=== PATIENT | female | born 1980 | race Caucasian/White ===

== ENCOUNTER 2018-03-10 02:50 | Emergency (ER) | payer MEDICAID ==
[2018-03-10] MEDS ORDERED: ALBUTEROL 2.5 MG/3 ML NEB SOL ONE (02:57)
[2018-03-10] MEDS ORDERED: IPRATROPIUM BROM 0.5MG/2.5ML ONE ×2 (02:57→03:00)
[2018-03-10] MEDS ORDERED: predniSONE 20 MG TAB ONE (03:30)
--- NOTE | 2018-03-10 03:38 | ER ---
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 aa1 Transition of care: patient was not received from another setting of care. Onset of symptoms was March 10, 2018. Care prior to arrival: None. 03:01 Method Of Arrival: Ambulatory aa1 03:01 Acuity: SHILPA 3 aa1 Triage Assessment: 03:10 General: Appears distressed, comfortable. Respiratory: Reports shortness of breath bp Onset: The symptoms/episode began/occurred just prior to arrival, the patient has moderate shortness of breath. 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 - Social history:: The patient lives at home, Smoking status: Patient/guardian denies using tobacco. Screenin:10 Abuse screen: Denies threats or abuse. Denies injuries from another. Nutritional bp screening: No deficits noted. Tuberculosis screening: No symptoms or risk factors identified. Fall Risk None identified. Assessment: 03:10 General: Appears distressed, comfortable, obese, Behavior is cooperative, appropriate bp for age, anxious. Pain: Denies pain. Neuro: Level of Consciousness is awake, alert, obeys commands, Oriented to person, place, time, situation, Appropriate for age. Cardiovascular: Rhythm is sinus rhythm. Respiratory: Airway is patent Respiratory effort is labored, shallow, Breath sounds are diminished bilaterally. GI: No deficits noted. : No deficits noted. EENT: No deficits noted. Derm: No deficits noted. Musculoskeletal: Circulation, motion, and sensation intact. Range of motion: intact in all extremities. 03:44 Reassessment: PT D/C HOME AMBULATORY, DX WITH ASTHMA EXACERBATION. bp Vital Signs: 03:02 BP 133 / 99; Pulse 95; Resp 28; Temp 98.1; Pulse Ox 100% on R/A; Weight 58.97 kg (R); aa1 03:44 BP 94 / 78; Pulse 90; Resp 16; Pulse Ox 100% ; bp ED Course: 02:51 Patient arrived in ED. am2 02:52 Carl Hernandez, JOSE LUIS is Primary Nurse. bp 02:58 Ananth Mcgraw MD is Attending Physician. gs 03:01 Triage completed. aa1 03:02 Arm band placed on right wrist. Patient placed in an exam room, on a stretcher. aa1 03:10 Patient has correct armband on for positive identification. Bed in low position. Call bp light in reach. Side rails up X2. 03:10 No provider procedures requiring assistance completed. Patient did not have IV access bp during this emergency room visit. Administered Medications: 03:03 Drug: Albuterol - atroVENT (3:1) (2.5 mg - 0.5 mg) 3 ml Route: Nebulizer; ak1 03:33 Follow up: Response: No adverse reaction ak1 03:03 Drug: AtroVENT Aerosol 0.5 mg Route: Inhalation; ak1 03:34 Follow up: Response: No adverse reaction ak1 03:32 Drug: predniSONE 40 mg Route: PO; ak1 03:33 Follow up: Response: No adverse reaction ak1 Outcome: 03:10 Discharged to home ambulatory. bp 03:10 Condition: stable 03:10 Discharge instructions given to patient, Instructed on discharge instructions, follow up and referral plans. medication usage, Demonstrated understanding of instructions, follow-up care, medications, Prescriptions given X 3. 03:37 Discharge ordered by . 03:53 Patient left the ED. bp Signatures: Kezia Nova RN RN aa1 Traci Gaspar RN RN ak1 Yarelis Kan am2 Ananth Mcgraw MD MD gs Peltier, Brian RN RN bp
--- NOTE | 2018-03-10 03:38 | EDPHYS ---
Physician Documentation [facility] Name: Najma Wood Age: 37 yrs Sex: Female : 1980 Arrival Date: 03/10/2018 Time: 02:51 Bed 5 Private MD: ED Physician Ananth Mcgraw HPI: 03/10 03:34 This 37 yrs old Female presents to ER via Ambulatory with complaints of gs Shortness Of Breath. 03:34 The patient has shortness of breath at rest. Onset: The symptoms/episode began/occurred gs acutely, yesterday. Duration: The symptoms are continuous, and are steadily getting worse. The patient's shortness of breath has no apparent modifying factors. Associated signs and symptoms: Pertinent positives: non-productive cough, Pertinent negatives: chest pain. Severity of symptoms: At their worst the symptoms were severe in the emergency department the symptoms are unchanged. The patient has experienced similar episodes in the past, multiple times. RAN OUT OF INHALERS. 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 - Social history:: The patient lives at home, Smoking status: Patient/guardian denies using tobacco. ROS: 03:34 All other systems are negative. gs Exam: 03:34 Head/Face: Normocephalic, atraumatic. Eyes: Pupils equal round and reactive to light, gs extra-ocular motions intact. Lids and lashes normal. Conjunctiva and sclera are non-icteric and not injected. Cornea within normal limits. Periorbital areas with no swelling, redness, or edema. ENT: Nares patent. No nasal discharge, no septal abnormalities noted. Tympanic membranes are normal and external auditory canals are clear. Oropharynx with no redness, swelling, or masses, exudates, or evidence of obstruction, uvula midline. Mucous membranes moist. Neck: Trachea midline, no thyromegaly or masses palpated, and no cervical lymphadenopathy. Supple, full range of motion without nuchal rigidity, or vertebral point tenderness. No Meningismus. Chest/axilla: Normal chest wall appearance and motion. Nontender with no deformity. No lesions are appreciated. 03:34 Abdomen/GI: Soft, non-tender, with normal bowel sounds. No distension or tympany. No guarding or rebound. No evidence of tenderness throughout. Back: No spinal tenderness. No costovertebral tenderness. Full range of motion. Skin: Warm, dry with normal turgor. Normal color with no rashes, no lesions, and no evidence of cellulitis. MS/ Extremity: Pulses equal, no cyanosis. Neurovascular intact. Full, normal range of motion. Neuro: Awake and alert, GCS 15, oriented to person, place, time, and situation. Cranial nerves II-XII grossly intact. Motor strength 5/5 in all extremities. Sensory grossly intact. Cerebellar exam normal. Normal gait. 03:34 Constitutional: The patient appears alert, awake. 03:34 Cardiovascular: Rate: tachycardic, Rhythm: regular, Pulses: no pulse deficits are appreciated, Heart sounds: normal. 03:34 Respiratory: mild respiratory distress is noted, Respirations: tachypnea, that is mild, Breath sounds: decreased breath sounds, that are moderate, are located in both bases, wheezing: expiratory is scattered. Vital Signs: 03:02 BP 133 / 99; Pulse 95; Resp 28; Temp 98.1; Pulse Ox 100% on R/A; Weight 58.97 kg (R); aa1 03:44 BP 94 / 78; Pulse 90; Resp 16; Pulse Ox 100% ; bp MDM: 03:02 Patient medically screened. 03:34 Differential diagnosis: asthma, Chronic Obstructive Pulmonary Disease. Data reviewed: vital signs, nurses notes. Medication response: albuterol nebulizer treatment(s) relieved the patient's symptoms. The patient is no longer wheezing. Response to treatment: the patient's symptoms have markedly improved after treatment, and as a result, I will discharge patient. Administered Medications: 03:03 Drug: Albuterol - atroVENT (3:1) (2.5 mg - 0.5 mg) 3 ml Route: Nebulizer; ak1 03:33 Follow up: Response: No adverse reaction ak1 03:03 Drug: AtroVENT Aerosol 0.5 mg Route: Inhalation; ak1 03:34 Follow up: Response: No adverse reaction ak1 03:32 Drug: predniSONE 40 mg Route: PO; ak1 03:33 Follow up: Response: No adverse reaction ak1 Disposition: 03/10/18 03:37 Discharged to Home. Impression: Mild persistent asthma with (acute) exacerbation. - Condition is Stable. - Discharge Instructions: Asthma, Adult. - Prescriptions for Albuterol Sulfate 2.5 mg /3 mL (0.083 %) Inhalation Solution for Nebulization - inhale 1 unit by NEBULIZATION route every 8 hours As needed; 1 box. Prednisone 20 mg Oral Tablet - take 2 tablet by ORAL route once daily for 5 days; 10 tablet. Albuterol Sulfate 90 mcg/actuation Inhalation - inhale 1-2 puff by INHALATION route every 4-6 hours; 2 Inhaler. - Medication Reconciliation Form, Thank You Letter, Antibiotic Education, Prescription Opioid Use form. - Follow up: Private Physician; When: 1 - 2 days; Reason: Re-evaluation by your physician. Signatures: Kezia Nova RN RN aa1 Traci Gaspar RN RN ak1 Ananth Mcgraw MD MD Carl Hernandez RN RN bp
== END 2018-03-10 03:53 | disposition home or self-care (01) ==
LOC: ER 02:50
DX: J45.21 Mild intermittent asthma with (acute) exacerbation (principal)
CPT/HCPCS: 94640; 99284; J7512

== ENCOUNTER 2018-05-16 06:10 | Emergency (ER) | payer MEDICAID ==
[2018-05-16] MEDS ORDERED: IPRATROPIUM BROM 0.5MG/2.5ML ONE ×2 (06:17→07:33)
[2018-05-16] MEDS ORDERED: ALBUTEROL 2.5 MG/3 ML NEB SOL ONE ×2 (06:17→07:33)
[2018-05-16] MEDS ORDERED: METHYLPREDNISOLONE 125 MG INJ ONE (06:31)
[2018-05-16] MEDS ORDERED: Magnesium Sulfate 2gm IVPB 2 G/50 ML BAG IV ONE (06:38)
--- NOTE | 2018-05-16 08:15 | EDPHYS ---
Physician Documentation [facility] Name: Najma Wood Age: 37 yrs Sex: Female : 1980 Arrival Date: 05/16/2018 Time: 06:11 Bed 13 Private MD: ED Physician Ananth Mcgraw HPI: 05/16 06:51 This 37 yrs old Female presents to ER via Ambulatory with complaints of jmm Asthma Exacerbation. 06:51 The patient presents to the emergency department with wheezing, that began without any jmm particular precipitating event. Onset: The symptoms/episode began/occurred gradually, 1 day(s) ago. Modifying factors: The symptoms are alleviated by nothing, the symptoms are aggravated by nothing. Associated signs and symptoms: Pertinent negatives: fever. This is a 37 year old female with a history of asthma that presents to the ED with wheezing. Patient is unsure of previous intubation. Patient states she was last admitted for asthma exacerbation in 2017. . 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 - Social history:: Smoking status: unknown. - Ebola Screening: : No symptoms or risks identified at this time. ROS: 06:51 Constitutional: Negative for fever, chills, and weight loss, Cardiovascular: Negative jmm for chest pain, palpitations, and edema. 06:51 Abdomen/GI: Negative for abdominal pain, nausea, vomiting, diarrhea, and constipation, Back: Negative for injury and pain, Skin: Negative for injury, rash, and discoloration, Neuro: Negative for headache, weakness, numbness, tingling, and seizure. 06:51 Respiratory: Positive for cough, shortness of breath. 06:51 All other systems are negative. Exam: 06:51 Head/Face: atraumatic. Chest/axilla: Normal chest wall appearance and motion. jmm Nontender with no deformity. No lesions are appreciated. Cardiovascular: Regular rate and rhythm. No gallops, murmurs, or rubs. Full/Equal distal pulses. 06:51 Constitutional: The patient appears in no acute distress, alert, awake. 06:51 Respiratory: mild respiratory distress is noted, Respirations: normal, Breath sounds: wheezing: that is moderate, is heard diffusely. 06:51 Back: ROM is normal. 06:51 Musculoskeletal/extremity: ROM: intact in all extremities. 06:51 Skin: Appearance: Color: normal in color. 06:51 Neuro: Orientation: is normal, Mentation: is normal, Memory: is normal, Gait: is steady. 06:51 Psych: Behavior/mood is pleasant, cooperative. Vital Signs: 06:24 BP 128 / 113; Pulse 74; Resp 20 S; Temp 98.0(O); Pulse Ox 100% on R/A; Weight 68.04 kg bb (R); Height 4 ft. 9 in. (144.78 cm) (R); 07:14 BP 109 / 65; Pulse 85; Resp 16; Pulse Ox 98% on R/A; Pain 0/10; em 08:22 BP 104 / 67; Pulse 94; Resp 18; Pulse Ox 100% on Nebulizer Mask; Pain 0/10; em 06:24 Body Mass Index 32.46 (68.04 kg, 144.78 cm) bb MDM: 06:34 Patient medically screened. [facility] 07:18 Data reviewed: vital signs, nurses notes. [facility] 08:14 Counseling: I had a detailed discussion with the patient and/or guardian regarding: the [facility] historical points, exam findings, and any diagnostic results supporting the discharge/admit diagnosis, the need for outpatient follow up, to return to the emergency department if symptoms worsen or persist or if there are any questions or concerns that arise at home. Response to treatment: the patient's symptoms have resolved after treatment. Administered Medications: 06:21 Drug: Albuterol - atroVENT (3:1) (2.5 mg - 0.5 mg) 3 ml Route: Nebulizer; bb 07:29 Follow up: Response: No adverse reaction em 06:34 Drug: SOLU-Medrol 125 mg Route: IVP; Site: left forearm; rv 07:29 Follow up: Response: No adverse reaction em 06:47 Drug: Magnesium Sulfate 2 grams Route: IVPB; Infused Over: 2 hrs; Site: left femoral; rv 07:29 Follow up: Response: No adverse reaction; IV Status: Completed infusion; IV Intake: em 100ml 07:35 Drug: DuoNeb (3:1) (2.5 mg - 0.5 mg) 3 ml Route: Nebulizer; em 08:38 Follow up: Response: No adverse reaction; Wheezing diminished em Disposition: 19:07 Co-signature as Attending Physician, Ananth Mcgraw MD. Disposition: 05/16/18 08:15 Discharged to Home. Impression: Asthma. - Condition is Stable. - Discharge Instructions: Asthma, Adult, Asthma Attack Prevention. - Prescriptions for Prednisone 20 mg Oral Tablet - take 3 tablet by ORAL route once daily for 5 days; 15 tablet. Albuterol Sulfate 90 mcg/actuation Inhalation - inhale 1-2 puff by INHALATION route every 4-6 hours; 2 Inhaler. Albuterol Sulfate 2.5 mg /3 mL (0.083 %) Inhalation Solution for Nebulization - inhale 1 unit by NEBULIZATION route every 8 hours As needed; 2 box. - Medication Reconciliation Form, Thank You Letter, Antibiotic Education, Prescription Opioid Use form. - Follow up: Private Physician; When: 2 - 3 days; Reason: Continuance of care. Signatures: Abhilash Chang PA PA [facility] Lane Torrez, SHAKE SPLITTER SHAKE SPLITTER Kia Perry RN RN bb Ananth Mcgraw MD MD Julio Sorensen, RN RN rv Corrections: (The following items were deleted from the chart) 08:38 08:15 05/16/2018 08:15 Discharged to Home. Impression: Asthma. Condition is Stable. em Forms are Medication Reconciliation Form, Thank You Letter, Antibiotic Education, Prescription Opioid Use. Follow up: Private Physician; When: 2 - 3 days; Reason: Continuance of care. fredrick
--- NOTE | 2018-05-16 08:15 | ER ---
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 Transition of care: patient was not received from another setting of care. Onset of symptoms was May 16, 2018 at 04:00. Risk Assessment: Do you want to hurt yourself or someone else? Patient reports no desire to harm self or others. Initial Sepsis Screen: Does the patient meet any 2 criteria? No. Patient's initial sepsis screen is negative. Does the patient have a suspected source of infection? No. Patient's initial sepsis screen is negative. Care prior to arrival: None. 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 - Social history:: Smoking status: unknown. - Ebola Screening: : No symptoms or risks identified at this time. Screenin:50 Abuse screen: Denies threats or abuse. Denies injuries from another. Nutritional rv screening: No deficits noted. Tuberculosis screening: No symptoms or risk factors identified. Fall Risk None identified. Assessment: 06:48 General: Appears distressed, uncomfortable, Behavior is cooperative. Pain: Denies pain. rv Neuro: Level of Consciousness is awake, alert, Oriented to person, place, time, situation. Cardiovascular: Capillary refill < 3 seconds. GI: No signs and/or symptoms were reported involving the gastrointestinal system. : No signs and/or symptoms were reported regarding the genitourinary system. EENT: No signs and/or symptoms were reported regarding the EENT system. Derm: Skin is intact. Musculoskeletal: No deficits noted. 06:50 Respiratory: Breath sounds with wheezes bilaterally. rv 07:03 Reassessment: ongoing inhalation treatment. ongoing magnesium sulfate on left hand. rv report given to Lane. 07:20 General: Appears in no apparent distress. comfortable, Behavior is calm, cooperative. em Pain: Denies pain. Neuro: Level of Consciousness is awake, alert, obeys commands, Oriented to person, place, time, situation. Cardiovascular: Capillary refill < 3 seconds Patient's skin is warm and dry. Respiratory: Airway is patent Respiratory effort is even, unlabored, Respiratory pattern is regular, symmetrical, Breath sounds with wheezes in right posterior middle lobe and right posterior lower lobe. GI: Abdomen is flat. : No signs and/or symptoms were reported regarding the genitourinary system. EENT: No signs and/or symptoms were reported regarding the EENT system. Derm: Skin is intact. Musculoskeletal: Range of motion: intact in all extremities. 08:21 Reassessment: Patient appears in no apparent distress at this time. Patient and/or em family updated on plan of care and expected duration. Pain level reassessed. Patient is alert, oriented x 3, equal unlabored respirations, skin warm/dry/pink. Patient states feeling better. Patient states symptoms have improved. Vital Signs: 06:24 BP 128 / 113; Pulse 74; Resp 20 S; Temp 98.0(O); Pulse Ox 100% on R/A; Weight 68.04 kg bb (R); Height 4 ft. 9 in. (144.78 cm) (R); 07:14 BP 109 / 65; Pulse 85; Resp 16; Pulse Ox 98% on R/A; Pain 0/10; em 08:22 BP 104 / 67; Pulse 94; Resp 18; Pulse Ox 100% on Nebulizer Mask; Pain 0/10; em 06:24 Body Mass Index 32.46 (68.04 kg, 144.78 cm) bb ED Course: 06:11 Patient arrived in ED. es 06:14 Carl Hernandez, JOSE LUIS is Primary Nurse. bp 06:18 Abhilash Chang PA is PHCP. jmm 06:18 Ananth Mcgraw MD is Attending Physician. jmm 06:23 Triage completed. bb 06:24 Arm band placed on Patient placed in an exam room, on a stretcher, on pulse oximetry. bb 06:34 Inserted saline lock: 20 gauge in left forearm, using aseptic technique. rv 06:51 Patient has correct armband on for positive identification. Bed in low position. Call rv light in reach. Side rails up X 1. Pulse ox on. NIBP on. 08:21 No provider procedures requiring assistance completed. IV discontinued, intact, em bleeding controlled, No redness/swelling at site. Pressure dressing applied. Administered Medications: 06:21 Drug: Albuterol - atroVENT (3:1) (2.5 mg - 0.5 mg) 3 ml Route: Nebulizer; bb 07:29 Follow up: Response: No adverse reaction em 06:34 Drug: SOLU-Medrol 125 mg Route: IVP; Site: left forearm; rv 07:29 Follow up: Response: No adverse reaction em 06:47 Drug: Magnesium Sulfate 2 grams Route: IVPB; Infused Over: 2 hrs; Site: left femoral; rv 07:29 Follow up: Response: No adverse reaction; IV Status: Completed infusion; IV Intake: em 100ml 07:35 Drug: DuoNeb (3:1) (2.5 mg - 0.5 mg) 3 ml Route: Nebulizer; em 08:38 Follow up: Response: No adverse reaction; Wheezing diminished em Intake: 07:29 IV: 100ml; Total: 100ml. em Outcome: 08:15 Discharge ordered by . georges 08:37 Discharged to home ambulatory. em 08:37 Condition: good 08:37 Discharge instructions given to patient, Instructed on discharge instructions, follow up and referral plans. medication usage, Demonstrated understanding of instructions, follow-up care, medications, Prescriptions given X 3. 08:38 Patient left the ED. em Signatures: Abhilash Chang PA PA Cher Modi Edgar, CROZE CUTTER HELPER CROZE CUTTER HELPER em Kia Perry, RN RN bb Carl Hernandez, RN RN Julio Prater, JOSE LUIS RN rv Corrections: (The following items were deleted from the chart) 07:04 07:01 Reassessment: patient lab results are normal. vitals signs stable. report given rv to next shift. rv
== END 2018-05-16 08:38 | disposition home or self-care (01) ==
LOC: ER 06:10
DX: J45.909 Unspecified asthma, uncomplicated (principal)
CPT/HCPCS: 94640; 96365; 96375; 99284; J2930; J3475

== ENCOUNTER 2018-07-15 05:23 | Emergency (ER) | payer MEDICAID ==
[2018-07-15] MEDS ORDERED: IPRATROPIUM BROM 0.5MG/2.5ML ONE (05:34)
[2018-07-15] MEDS ORDERED: ALBUTEROL 2.5 MG/3 ML NEB SOL ONE (05:34)
[2018-07-15] MEDS ORDERED: METHYLPREDNISOLONE 125 MG INJ ONE (05:51)
--- NOTE | 2018-07-15 06:24 | EDPHYS ---
Physician Documentation [facility] Name: Najma Wood Age: 38 yrs Sex: Female : 1980 Arrival Date: 07/15/2018 Time: 05:26 Bed 17 Private MD: ED Physician Rodger Kim HPI: 07/15 06:18 This 38 yrs old Female presents to ER via Ambulatory with complaints of tw4 Asthma Exacerbation. 06:18 The patient presents to the emergency department with wheezing, Current therapy: tw4 albuterol inhaler, oral steroids. Onset: The symptoms/episode began/occurred last night. Modifying factors: The symptoms are alleviated by nothing, the symptoms are aggravated by nothing. Associated signs and symptoms: The patient has no apparent associated signs or symptoms. Severity of symptoms: At their worst the symptoms were moderate in the emergency department the symptoms are unchanged. The patient has not experienced similar symptoms in the past. 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 - Social history:: Smoking status: Patient/guardian denies using tobacco. - Ebola Screening: : No symptoms or risks identified at this time. ROS: 06:18 Constitutional: Negative for fever, chills, and weight loss, Eyes: Negative for injury, tw4 pain, redness, and discharge, Cardiovascular: Negative for chest pain, palpitations, and edema, Abdomen/GI: Negative for abdominal pain, nausea, vomiting, diarrhea, and constipation, Back: Negative for injury and pain, MS/Extremity: Negative for injury and deformity, Skin: Negative for injury, rash, and discoloration, Neuro: Negative for headache, weakness, numbness, tingling, and seizure. 06:18 Respiratory: Positive for wheezing, Negative for cough, dyspnea on exertion, hemoptysis, orthopnea. Exam: 06:18 Constitutional: This is a well developed, well nourished patient who is awake, alert, tw4 and in no acute distress. Head/Face: Normocephalic, atraumatic. Chest/axilla: Normal chest wall appearance and motion. Nontender with no deformity. No lesions are appreciated. Cardiovascular: Regular rate and rhythm with a normal S1 and S2. No gallops, murmurs, or rubs. Normal PMI, no JVD. No pulse deficits. 06:18 Respiratory: moderate respiratory distress is noted, Respirations: normal, Breath sounds: wheezing: expiratory Vital Signs: 05:39 BP 200 / 115; Pulse 111; Resp 24; Temp 97.5; Pulse Ox 93% on R/A; Weight 65.77 kg (R); ak1 Height 5 ft. 4 in. (162.56 cm) (R); Pain 2/10; 05:45 BP 134 / 113; Pulse 93; Resp 20; Pulse Ox 99% on 100% Nebulizer Mask; ak1 06:03 BP 112 / 88; Pulse 93; Resp 18; Pulse Ox 99% on R/A; ak1 06:17 Pulse 89; Resp 18; Pulse Ox 97% on R/A; ak1 05:39 Body Mass Index 24.89 (65.77 kg, 162.56 cm) ak1 06:03 pt expressed improvement with a thumbs up. ak1 MDM: 05:30 Patient medically screened. tw4 06:18 Differential diagnosis: acute asthma. Data reviewed: vital signs, nurses notes. tw4 Counseling: I had a detailed discussion with the patient and/or guardian regarding: the historical points, exam findings, and any diagnostic results supporting the discharge/admit diagnosis. Medication response: albuterol nebulizer treatment(s) markedly relieved the patient's wheezing. Medication response: Solumedrol. Response to treatment: the patient's symptoms have markedly improved after treatment, and as a result, I will discharge patient. Special discussion: I discussed with the patient/guardian in detail that at this point there is no indication for admission to the hospital. It is understood, however, that if the symptoms persist or worsen the patient needs to return immediately for re-evaluation. 07/15 05:38 Order name: XRAY CXR (1 view) 07/15 05:38 Order name: IV Saline Lock; Complete Time: 05:46 4 07/15 05:38 Order name: O2 Per Protocol; Complete Time: 05:39 07/15 05:38 Order name: O2 Sat Monitoring; Complete Time: 05:39 tw4 Administered Medications: 05:33 Drug: Albuterol - atroVENT (3:1) (2.5 mg - 0.5 mg) 3 ml Route: Nebulizer; aa1 05:47 Follow up: Response: No adverse reaction ak1 05:49 Drug: SOLU-Medrol 125 mg Route: IVP; Site: right antecubital; ak1 06:30 Follow up: Response: No adverse reaction ak1 Disposition: 07/15/18 06:23 Discharged to Home. Impression: Asthma. - Condition is Stable. - Discharge Instructions: Asthma, Adult, Form - Asthma Action Plan, Adult. - Prescriptions for Albuterol Sulfate 2.5 mg /3 mL (0.083 %) Inhalation Solution for Nebulization - inhale 1 unit by NEBULIZATION route every 8 hours As needed; 1 box. Medrol (Steve) 4 mg Oral Tablets, Dose Pack - take 1 tablet by ORAL route as directed - follow package instructions; 1 packet. Albuterol Sulfate 90 mcg/actuation - inhale 1-2 puff by INHALATION route every 4-6 hours; 1 Inhaler. - Medication Reconciliation Form, Thank You Letter, Antibiotic Education, Prescription Opioid Use form. - Follow up: Private Physician; When: Upon discharge from the Emergency Department; Reason: Further diagnostic work-up, Recheck today's complaints, Re-evaluation by your physician. - Problem is new. - Symptoms have improved. Signatures: Dispatcher [employer] EDMS Kezia Nova RN RN aa1 Traci Gaspar RN RN ak1 Rodger Kim MD MD tw4 Corrections: (The following items were deleted from the chart) 06:40 06:23 07/15/2018 06:23 Discharged to Home. Impression: Asthma. Condition is Stable. ak1 Forms are Medication Reconciliation Form, Thank You Letter, Antibiotic Education, Prescription Opioid Use. Follow up: Private Physician; When: Upon discharge from the Emergency Department; Reason: Further diagnostic work-up, Recheck today's complaints, Re-evaluation by your physician. Problem is new. Symptoms have improved. tw4
--- NOTE | 2018-07-15 06:24 | ER ---
Nurse's Notes [facility] Name: Najma Wood Age: 38 yrs Sex: Female : 1980 Arrival Date: 07/15/2018 Time: 05:26 Bed 17 Private MD: Diagnosis: Asthma Presentation: 07/15 05:39 Presenting complaint: Patient states: asthma attack started at 2200 last and worsened ak1 this morning. pt stated she does not have a PCP and needs a refill on her inhaler. Transition of care: patient was not received from another setting of care. Onset of symptoms was July 14, 2018. Risk Assessment: Do you want to hurt yourself or someone else? Patient reports no desire to harm self or others. Initial Sepsis Screen: Does the patient meet any 2 criteria? No. Patient's initial sepsis screen is negative. Does the patient have a suspected source of infection? No. Patient's initial sepsis screen is negative. Care prior to arrival: None. 05:39 Method Of Arrival: Ambulatory ak1 05:39 Acuity: SHILPA 3 ak1 Triage Assessment: 05:39 General: Appears uncomfortable, Behavior is calm, cooperative. Pain: Denies pain. EENT: ak1 No signs and/or symptoms were reported regarding the EENT system. Neuro: No deficits noted. Cardiovascular: No deficits noted. Respiratory: Reports shortness of breath air hunger Airway is patent Respiratory effort is labored, with retractions, Breath sounds with wheezes the patient has moderate shortness of breath. GI: No signs and/or symptoms were reported involving the gastrointestinal system. : No signs and/or symptoms were reported regarding the genitourinary system. Derm: No signs and/or symptoms reported regarding the dermatologic system. Musculoskeletal: No signs and/or symptoms reported regarding the musculoskeletal system. 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 - Social history:: Smoking status: Patient/guardian denies using tobacco. - Ebola Screening: : No symptoms or risks identified at this time. Screenin:43 Abuse screen: Denies threats or abuse. Denies injuries from another. Nutritional ak1 screening: No deficits noted. Tuberculosis screening: No symptoms or risk factors identified. Fall Risk None identified. Assessment: 05:44 Reassessment: see triage assessment. ak1 Vital Signs: 05:39 BP 200 / 115; Pulse 111; Resp 24; Temp 97.5; Pulse Ox 93% on R/A; Weight 65.77 kg (R); ak1 Height 5 ft. 4 in. (162.56 cm) (R); Pain 2/10; 05:45 BP 134 / 113; Pulse 93; Resp 20; Pulse Ox 99% on 100% Nebulizer Mask; ak1 06:03 BP 112 / 88; Pulse 93; Resp 18; Pulse Ox 99% on R/A; ak1 06:17 Pulse 89; Resp 18; Pulse Ox 97% on R/A; ak1 05:39 Body Mass Index 24.89 (65.77 kg, 162.56 cm) ak1 06:03 pt expressed improvement with a thumbs up. ak1 ED Course: 05:26 Patient arrived in ED. es 05:28 Traci Gaspar, RN is Primary Nurse. ak1 05:30 Rodger Kim MD is Attending Physician. tw4 05:39 Arm band placed on Patient placed in an exam room, on a stretcher, on oxygen, on pulse ak1 oximetry. 05:41 Triage completed. ak1 05:43 Patient has correct armband on for positive identification. Bed in low position. Call ak1 light in reach. Side rails up X 1. Pulse ox on. NIBP on. 05:45 Inserted saline lock: 20 gauge in right antecubital area, using aseptic technique. mw2 Blood collected. 05:57 X-ray completed. Portable x-ray completed in exam room. Patient tolerated procedure kw well. 05:59 XRAY CXR (1 view) In Process Unspecified. EDMS 06:04 No provider procedures requiring assistance completed. ak1 06:31 IV discontinued, intact, bleeding controlled, No redness/swelling at site. Pressure ak1 dressing applied. Administered Medications: 05:33 Drug: Albuterol - atroVENT (3:1) (2.5 mg - 0.5 mg) 3 ml Route: Nebulizer; aa1 05:47 Follow up: Response: No adverse reaction ak1 05:49 Drug: SOLU-Medrol 125 mg Route: IVP; Site: right antecubital; ak1 06:30 Follow up: Response: No adverse reaction ak1 Outcome: 06:23 Discharge ordered by . tw4 06:30 Discharged to home ambulatory. ak1 06:30 Condition: improved 06:30 Discharge instructions given to patient, Instructed on discharge instructions, follow up and referral plans. medication usage, Demonstrated understanding of instructions, follow-up care, medications, Prescriptions given X 3. 06:40 Patient left the ED. ak1 Signatures: Dispatcher [employer] Kezia Amado RN RN aa1 Cher Holley Kimberlee kw Krenek, Amber, RN RN ak1 Rodger Kim MD MD tw4 Dylan Santacruz mw2
--- NOTE | 2018-07-15 08:37 | RAD REPORT ---
EXAM DESCRIPTION: RAD - Chest Single View - 07/15/2018 5:59 am CLINICAL HISTORY: DYSPNEA Chest pain. COMPARISON: Chest Single View dated 12/22/2017; Chest Single View dated 05/20/2017; Chest Single View dated 01/12/2017; Chest Single View dated 09/05/2016 FINDINGS: Portable technique limits examination quality. The lungs are grossly clear. The heart is normal in size. No displaced fractures. IMPRESSION: No acute intrathoracic process suspected.
== END 2018-07-15 06:40 | disposition home or self-care (01) ==
LOC: ER 05:23
DX: J45.909 Unspecified asthma, uncomplicated (principal)
CPT/HCPCS: 71045; 94640; 96374; 99285; J2930

== ENCOUNTER 2018-09-13 05:02 | Emergency (ER) | payer MEDICAID ==
[2018-09-13] MEDS ORDERED: ALBUTEROL 2.5 MG/3 ML NEB SOL ONE (05:39)
[2018-09-13] MEDS ORDERED: METHYLPREDNISOLONE 125 MG INJ ONE (05:39)
[2018-09-13] MEDS ORDERED: NA CHLORIDE 0.9% 1,000 ML ONE (05:40)
[2018-09-13] MEDS ORDERED: predniSONE 20 MG TAB ONE (05:40)
--- NOTE | 2018-09-13 05:56 | ER ---
Nurse's Notes [facility] Name: Najma Wood Age: 38 yrs Sex: Female : 1980 Arrival Date: 09/13/2018 Time: 05:04 Bed 7 Private MD: Diagnosis: Asthma;Acute upper respiratory infection, unspecified Presentation: 09/13 05:05 Presenting complaint: EMS states: pt alerted officers at 0430 of asthma attack. pt ao received A\T\A neb tx in route to ER. officer at bedside with pt. Transition of care: patient was not received from another setting of care. Onset of symptoms was September 13, 2018. Risk Assessment: Do you want to hurt yourself or someone else? Patient reports no desire to harm self or others. Initial Sepsis Screen: Does the patient meet any 2 criteria? No. Patient's initial sepsis screen is negative. Does the patient have a suspected source of infection? No. Patient's initial sepsis screen is negative. Care prior to arrival: None. 05:05 Method Of Arrival: EMS: [facility] ao 05:05 Acuity: SHILPA 4 ao Triage Assessment: 05:09 General: Appears in no apparent distress. Behavior is calm, cooperative. Pain: Denies ao pain. EENT: No signs and/or symptoms were reported regarding the EENT system. Neuro: No deficits noted. Cardiovascular: No deficits noted. Respiratory: Reports shortness of breath cough that is. GI: No signs and/or symptoms were reported involving the gastrointestinal system. : No signs and/or symptoms were reported regarding the genitourinary system. Derm: No signs and/or symptoms reported regarding the dermatologic system. Musculoskeletal: No signs and/or symptoms reported regarding the musculoskeletal system. 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 - Social history:: Smoking status: unknown. - Ebola Screening: : No symptoms or risks identified at this time. - Family history:: not pertinent. Screenin:10 Abuse screen: Denies threats or abuse. Denies injuries from another. Nutritional ao screening: No deficits noted. Tuberculosis screening: No symptoms or risk factors identified. Fall Risk None identified. Assessment: 05:11 Reassessment: Patient appears in no apparent distress at this time. No changes from ak1 previously documented assessment. see triage assessment. Vital Signs: 05:05 BP 145 / 96; Pulse 74; Resp 22; Temp 98; Pulse Ox 100% on Nebulizer Mask; Weight 79.38 ao kg (R); Height 5 ft. 0 in. (152.40 cm) (R); Pain 0/10; 06:23 BP 114 / 74; Pulse 88; Resp 20; Temp 98; Pulse Ox 96% on R/A; Pain 0/10; ak1 05:05 Body Mass Index 34.18 (79.38 kg, 152.40 cm) ao ED Course: 05:04 Patient arrived in ED. ao 05:05 Arm band placed on Patient placed in an exam room, on a stretcher, on oxygen, on pulse ao oximetry, Patient notified of wait time Patient officer at bedside with pt. 05:06 Ray Marquez MD is Attending Physician. yanet 05:08 Triage completed. ao 05:10 Patient has correct armband on for positive identification. Bed in low position. Call ao light in reach. Side rails up X2. Pulse ox on. NIBP on. 05:11 Traci Gaspar, JOSE LUIS is Primary Nurse. ak1 05:37 X-ray completed. Portable x-ray completed in exam room. Patient tolerated procedure ls3 well. 05:38 Chest Single View XRAY In Process Unspecified. EDMS 05:55 Jaylon Virgen MD is Referral Physician. yanet 06:24 No provider procedures requiring assistance completed. Inserted saline lock: 20 gauge ak1 in right antecubital area, using aseptic technique. ,using aseptic technique. placed by Brad Blood collected. 06:42 IV discontinued, intact, bleeding controlled, No redness/swelling at site. Pressure ak1 dressing applied. Administered Medications: 05:38 Drug: Albuterol 5 mg Route: Inhalation; ak1 05:38 Drug: predniSONE 40 mg Route: PO; ak1 06:23 Follow up: Response: No adverse reaction ak1 05:54 Drug: NS 0.9% 1000 ml Route: IV; Rate: 1 bolus; Site: right antecubital; ak1 06:41 Follow up: IV Status: Completed infusion ak1 05:54 Drug: SOLU-Medrol 125 mg Route: IVP; Site: right antecubital; ak1 06:23 Follow up: Response: No adverse reaction ak1 06:40 Drug: Potassium Chloride 40 mEq Route: PO; ak1 06:41 Follow up: Response: No adverse reaction ak1 Outcome: 05:56 Discharge ordered by MD. holt 06:41 Discharged to Law Enforcement ak1 06:41 Condition: good 06:41 Discharge instructions given to police, Instructed on discharge instructions, follow up and referral plans. medication usage, Demonstrated understanding of instructions, follow-up care, medications, Prescriptions given X 4. 06:42 Patient left the ED. ak1 Signatures: Dispatcher [employer] EDMS Ray Marquez MD MD cha Krenek, Amber RN RN ak1 Kb Alvarado RN RN ao Siler, Lynzie 3
--- NOTE | 2018-09-13 05:57 | EDPHYS ---
Physician Documentation [facility] Name: Najma Wood Age: 38 yrs Sex: Female : 1980 Arrival Date: 09/13/2018 Time: 05:04 Bed 7 Private MD: ED Physician Ray Marquez HPI: 09/13 05:15 This 38 yrs old Female presents to ER via EMS with complaints of Asthma yanet Exacerbation. 05:15 The patient presents to the emergency department with wheezing, Current therapy: yanet albuterol inhaler. Onset: The symptoms/episode began/occurred 1 day(s) ago. Modifying factors: The symptoms are alleviated by nothing, the symptoms are aggravated by nothing. Associated signs and symptoms: The patient has no apparent associated signs or symptoms. Severity of symptoms: At their worst the symptoms were. The patient has not experienced similar symptoms in the past. 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 - Social history:: Smoking status: unknown. - Ebola Screening: : No symptoms or risks identified at this time. - Family history:: not pertinent. ROS: 05:15 Constitutional: Negative for fever, chills, and weight loss, Eyes: Negative for injury, yanet pain, redness, and discharge, ENT: Negative for injury, pain, and discharge, Neck: Negative for injury, pain, and swelling, Cardiovascular: Negative for chest pain, palpitations, and edema, Abdomen/GI: Negative for abdominal pain, nausea, vomiting, diarrhea, and constipation, Back: Negative for injury and pain, : Negative for injury, bleeding, discharge, and swelling, MS/Extremity: Negative for injury and deformity, Skin: Negative for injury, rash, and discoloration, Neuro: Negative for headache, weakness, numbness, tingling, and seizure, Psych: Negative for depression, anxiety, suicide ideation, homicidal ideation, and hallucinations, Allergy/Immunology: Negative for hives, rash, and allergies, Endocrine: Negative for neck swelling, polydipsia, polyuria, polyphagia, and marked weight changes, Hematologic/Lymphatic: Negative for swollen nodes, abnormal bleeding, and unusual bruising. 05:15 Respiratory: Positive for cough, wheezing, expiratory. Exam: 05:15 Constitutional: This is a well developed, well nourished patient who is awake, alert, yanet and in no acute distress. Head/Face: Normocephalic, atraumatic. Eyes: Pupils equal round and reactive to light, extra-ocular motions intact. Lids and lashes normal. Conjunctiva and sclera are non-icteric and not injected. Cornea within normal limits. Periorbital areas with no swelling, redness, or edema. ENT: Nares patent. No nasal discharge, no septal abnormalities noted. Tympanic membranes are normal and external auditory canals are clear. Oropharynx with no redness, swelling, or masses, exudates, or evidence of obstruction, uvula midline. Mucous membranes moist. Neck: Trachea midline, no thyromegaly or masses palpated, and no cervical lymphadenopathy. Supple, full range of motion without nuchal rigidity, or vertebral point tenderness. No Meningismus. Chest/axilla: Normal chest wall appearance and motion. Nontender with no deformity. No lesions are appreciated. Cardiovascular: Regular rate and rhythm with a normal S1 and S2. No gallops, murmurs, or rubs. Normal PMI, no JVD. No pulse deficits. Respiratory: Lungs have equal breath sounds bilaterally, clear to auscultation and percussion. No rales, rhonchi or wheezes noted. No increased work of breathing, no retractions or nasal flaring. Abdomen/GI: Soft, non-tender, with normal bowel sounds. No distension or tympany. No guarding or rebound. No evidence of tenderness throughout. Back: No spinal tenderness. No costovertebral tenderness. Full range of motion. Skin: Warm, dry with normal turgor. Normal color with no rashes, no lesions, and no evidence of cellulitis. MS/ Extremity: Pulses equal, no cyanosis. Neurovascular intact. Full, normal range of motion. Neuro: Awake and alert, GCS 15, oriented to person, place, time, and situation. Cranial nerves II-XII grossly intact. Motor strength 5/5 in all extremities. Sensory grossly intact. Cerebellar exam normal. Normal gait. Psych: Awake, alert, with orientation to person, place and time. Behavior, mood, and affect are within normal limits. 05:15 Musculoskeletal/extremity: DVT Exam: No signs of deep vein thrombosis. no pain, no swelling, no tenderness, negative Homans' sign noted on exam, no appreciated bluish discoloration, no erythema, no increased warmth. Vital Signs: 05:05 BP 145 / 96; Pulse 74; Resp 22; Temp 98; Pulse Ox 100% on Nebulizer Mask; Weight 79.38 ao kg (R); Height 5 ft. 0 in. (152.40 cm) (R); Pain 0/10; 06:23 BP 114 / 74; Pulse 88; Resp 20; Temp 98; Pulse Ox 96% on R/A; Pain 0/10; ak1 05:05 Body Mass Index 34.18 (79.38 kg, 152.40 cm) ao MDM: 05:06 Patient medically screened. [facility] 05:17 Data reviewed: vital signs, nurses notes, lab test result(s), EKG, radiologic studies, [facility] plain films. 09/13 05:15 Order name: CBC with Diff [facility] 09/13 05:15 Order name: Comprehensive Metabolic Panel [facility] 09/13 05:15 Order name: Blood Culture Adult (2) [facility] 09/13 05:15 Order name: CBC with Automated Diff; Complete Time: 06:05 [facility] 09/13 05:15 Order name: Comprehensive Metabolic Panel; Complete Time: 06:27 [facility] 09/13 05:37 Order name: Urine Dipstick--Ancillary (enter results); Complete Time: 06:11 [facility] 09/13 05:15 Order name: Chest Single View XRAY [facility] 09/13 05:15 Order name: Urine Dipstick-Ancillary (obtain specimen); Complete Time: 05:[address] [facility] 09/13 05:37 Order name: Urine --Ancillary (enter results) [facility] 09/13 05:15 Order name: Urine Test (obtain specimen); Complete Time: 05:[address] [facility] Administered Medications: 05:38 Drug: Albuterol 5 mg Route: Inhalation; ak1 05:38 Drug: predniSONE 40 mg Route: PO; ak1 06:23 Follow up: Response: No adverse reaction ak1 05:54 Drug: NS 0.9% 1000 ml Route: IV; Rate: 1 bolus; Site: right antecubital; ak1 06:41 Follow up: IV Status: Completed infusion ak1 05:54 Drug: SOLU-Medrol 125 mg Route: IVP; Site: right antecubital; ak1 06:23 Follow up: Response: No adverse reaction ak1 06:40 Drug: Potassium Chloride 40 mEq Route: PO; ak1 06:41 Follow up: Response: No adverse reaction ak1 Disposition: 09/13/18 05:56 Discharged to Home. Impression: Asthma, Acute upper respiratory infection, unspecified. - Condition is Stable. - Discharge Instructions: Asthma, Adult, Upper Respiratory Infection, Adult, Upper Respiratory Infection, Adult, Vatn-cp-Tlsw, Asthma, Adult, Kvjh-ak-Bmtz, Cough, Adult. - Prescriptions for Albuterol Sulfate 2.5 mg /3 mL (0.083 %) Inhalation Solution for Nebulization - inhale 1 unit by NEBULIZATION route every 8 hours As needed; 1 box. Zithromax Z- Steve 250 mg Oral Tablet - take 1 tablet by ORAL route as directed for 5 days Day 1 - take two (2) tablets one time. Day 2, 3, 4 , 5 take one (1) tablet once daily.; 6 tablet. Prednisone 20 mg Oral Tablet - take 2 tablet by ORAL route once daily for 5 days; 10 tablet. Albuterol Sulfate 90 mcg/actuation - inhale 1-2 puff by INHALATION route every 4-6 hours; 1 Inhaler. - Medication Reconciliation Form, Thank You Letter, Antibiotic Education, Prescription Opioid Use form. - Follow up: Private Physician; When: 2 - 3 days; Reason: Recheck today's complaints, Continuance of care, Re-evaluation by your physician. Follow up: Jaylon Virgen MD; When: 2 - 3 days; Reason: Recheck today's complaints, Re-evaluation by your physician. - Problem is new. - Symptoms have improved. Signatures: Dispatcher [employer] EDMS Ray Marquez MD MD cha Rittger, Kevin, MD MD kdr Krenek, Amber, RN RN ak1 Kb Alvarado RN RN ao Corrections: (The following items were deleted from the chart) 06:42 05:56 09/13/2018 05:56 Discharged to Home. Impression: Asthma; Acute upper respiratory ak1 infection, unspecified. Condition is Stable. Discharge Instructions: Asthma, Adult, Upper Respiratory Infection, Adult, Upper Respiratory Infection, Adult, Tals-mo-Ykrf, Asthma, Adult, Lqin-nu-Wsov, Cough, Adult. Prescriptions for Albuterol Sulfate 2.5 mg /3 mL (0.083 %) Inhalation Solution for Nebulization - inhale 1 unit by NEBULIZATION route every 8 hours As needed; 1 box, Zithromax Z-Steve 250 mg Oral Tablet - take 1 tablet by ORAL route as directed for 5 days Day 1 - take two (2) tablets one time. Day 2, 3, 4 , 5 take one (1) tablet once daily.; 6 tablet, Prednisone 20 mg Oral Tablet - take 2 tablet by ORAL route once daily for 5 days; 10 tablet, Albuterol Sulfate 90 mcg/actuation - inhale 1-2 puff by INHALATION route every 4-6 hours; 1 Inhaler. and Forms are Medication Reconciliation Form, Thank You Letter, Antibiotic Education, Prescription Opioid Use. Follow up: Private Physician; When: 2 - 3 days; Reason: Recheck today's complaints, Continuance of care, Re-evaluation by your physician. Follow up: Jaylon Virgen; When: 2 - 3 days; Reason: Recheck today's complaints, Re-evaluation by your physician. Problem is new. Symptoms have improved. yanet
[2018-09-13 05:58] LABS: Absolute Monocytes 0.4 K/uL (0.1-1.3); Absolute Neutrophil 4.8 K/uL (1.8-8.0); Basophils % 0.8 % (0-1.3); Eosinophils % 2.1 % (0-4.4); Hematocrit 42.6 % (36.0-45.0); MCH 31.6 pg (27.0-35.0); MCV 90.2 fL (80-100); Monocytes % 4.2 % (3.3-12.3); RBC Red Blood Cell Count 4.73 M/uL (3.86-4.86)
[2018-09-13 06:09] LABS: Urine Blood TRACE (NEG); Urine Glucose NEGATIVE (NEG); Urine Protein NEGATIVE (NEG)
[2018-09-13 06:20] LABS: Albumin 3.8 g/dL (3.4-5.0); Bilirubin Total 0.7 mg/dL (0.2-1.0); Potassium 3.2 mmol/L (3.5-5.1); Protein, Total 7.8 g/dL (6.4-8.2)
[2018-09-13] MEDS ORDERED: POTASSIUM CL SA 10 MEQ TAB PO ONE (06:39)
--- NOTE | 2018-09-13 10:00 | RAD REPORT ---
EXAM DESCRIPTION: Marsha Single View09/13/2018 5:38 am CLINICAL HISTORY: cough COMPARISON: June 2018 FINDINGS: The lungs appear clear of acute infiltrate. Lungs are hyperaerated. The heart is normal s ize IMPRESSION: No acute abnormalities displayed
== END 2018-09-13 06:42 | disposition home or self-care (01) ==
LOC: ER 05:02
DX: J06.9 Acute upper respiratory infection, unspecified (principal); J45.909 Unspecified asthma, uncomplicated
CPT/HCPCS: 36415; 71045; 80053; 81003; 81025; 85025; 87040; 96361; 96374; 99285; J2930; J7030; J7512

== ENCOUNTER 2018-11-14 06:49 | Emergency (ER) | payer MEDICAID ==
[2018-11-14] MEDS ORDERED: predniSONE 20 MG TAB ONE ×2 (07:16→07:17)
[2018-11-14] MEDS ORDERED: FAMOTIDINE 20 MG TAB ONE (07:16)
[2018-11-14] MEDS ORDERED: ALBUTEROL 2.5 MG/3 ML NEB SOL ONE ×2 (07:16→08:17)
[2018-11-14] MEDS ORDERED: IPRATROPIUM BROM 0.5MG/2.5ML ONE (07:16)
[2018-11-14] MEDS ORDERED: MAGNESIUM OXIDE 400 MG TAB ONE (07:16)
[2018-11-14] MEDS ORDERED: HYDROCODONE/CHLORPHEN 5 ML/OSYR ONE (07:33)
--- NOTE | 2018-11-14 08:36 | EDPHYS ---
Physician Documentation [facility] Name: Najma Wood Age: 38 yrs Sex: Female : 1980 Arrival Date: 11/14/2018 Time: 06:49 Bed 7 Private MD: ED Physician Ray Marquez HPI: 11/14 07:04 This 38 yrs old Female presents to ER via Unassigned with complaints of snw Breathing Difficulty, Asthma Exacerbation. 07:04 The patient has shortness of breath at rest. Onset: The symptoms/episode began/occurred snw gradually. Duration: The symptoms are continuous. Severity of symptoms: At their worst the symptoms were moderate in the emergency department the symptoms are unchanged. The patient has experienced similar episodes in the past, chronically. The patient has been recently seen at the [facility] Emergency Department, for similar complaints 2 months ago. Historical: - Allergies: 07:07 NKA; tl2 - Home Meds: 07:07 Prednisone Oral [Active]; proair daily [Active]; tl2 - PMHx: 07:07 Asthma; Deaf; tl2 - Immunization history:: Adult Immunizations up to date. - Social history:: Smoking status: Patient/guardian denies using tobacco. - Ebola Screening: : No symptoms or risks identified at this time. ROS: 07:03 Constitutional: Negative for fever, chills, and weight loss, Eyes: Negative for injury, snw pain, redness, and discharge, ENT: Negative for injury, pain, and discharge, Neck: Negative for injury, pain, and swelling, Cardiovascular: Negative for chest pain, palpitations, and edema, Abdomen/GI: Negative for abdominal pain, nausea, vomiting, diarrhea, and constipation, Back: Negative for injury and pain, : Negative for injury, bleeding, discharge, and swelling, MS/Extremity: Negative for injury and deformity, Skin: Negative for injury, rash, and discoloration, Neuro: Negative for headache, weakness, numbness, tingling, and seizure. 07:03 Respiratory: Positive for cough, shortness of breath, wheezing. Exam: 07:02 Head/Face: Normocephalic, atraumatic. Eyes: Pupils equal round and reactive to light, snw extra-ocular motions intact. Lids and lashes normal. Conjunctiva and sclera are non-icteric and not injected. Cornea within normal limits. Periorbital areas with no swelling, redness, or edema. ENT: Nares patent. No nasal discharge, no septal abnormalities noted. Tympanic membranes are normal and external auditory canals are clear. Oropharynx with no redness, swelling, or masses, exudates, or evidence of obstruction, uvula midline. Mucous membranes moist. Neck: Trachea midline, no thyromegaly or masses palpated, and no cervical lymphadenopathy. Supple, full range of motion without nuchal rigidity, or vertebral point tenderness. No Meningismus. Chest/axilla: Normal chest wall appearance and motion. Nontender with no deformity. No lesions are appreciated. 07:02 Abdomen/GI: Soft, non-tender, with normal bowel sounds. No distension or tympany. No guarding or rebound. No evidence of tenderness throughout. Back: No spinal tenderness. No costovertebral tenderness. Full range of motion. Skin: Warm, dry with normal turgor. Normal color with no rashes, no lesions, and no evidence of cellulitis. MS/ Extremity: Pulses equal, no cyanosis. Neurovascular intact. Full, normal range of motion. Neuro: Awake and alert, GCS 15, oriented to person, place, time, and situation. Cranial nerves II-XII grossly intact. Motor strength 5/5 in all extremities. Sensory grossly intact. Cerebellar exam normal. Normal gait. Psych: Awake, alert, with orientation to person, place and time. Behavior, mood, and affect are within normal limits. 07:02 Constitutional: The patient appears alert, awake, anxious, deaf 07:02 Cardiovascular: Rate: tachycardic. 07:02 Respiratory: mild respiratory distress is noted, Respirations: prolonged exhalation, shallow respirations, tachypnea, Breath sounds: wheezing: expiratory that is moderate, is heard diffusely. Vital Signs: 07:01 BP 162 / 98; Pulse 105; Resp 20; Temp 97.7(O); Pulse Ox 97% on R/A; Height 4 ft. 10 in. tl2 (147.32 cm); 07:31 BP 121 / 81; Pulse 87; Resp 22; Pulse Ox 100% ; sv 08:00 BP 115 / 93; Pulse 78; Resp 20; Pulse Ox 95% ; sv 08:55 BP 117 / 90; Pulse 79; Resp 18; Pulse Ox 99% on R/A; sv MDM: 06:55 Patient medically screened. snw 08:37 Data reviewed: vital signs, nurses notes. Data interpreted: Pulse oximetry: is 96 %. snw Interpretation: acceptable. Counseling: I had a detailed discussion with the patient and/or guardian regarding: the historical points, exam findings, and any diagnostic results supporting the discharge/admit diagnosis, the presence of at least one elevated blood pressure reading (>120/80) during this emergency department visit, the need for outpatient follow up, to return to the emergency department if symptoms worsen or persist or if there are any questions or concerns that arise at home. Response to treatment: the patient's symptoms have markedly improved after treatment. Special discussion: I have referred the patient to see his PCP for further evaluation of high blood pressure. Based on the history and exam findings, there is no indication for further emergent testing or inpatient evaluation. I discussed with the patient/guardian the need to see the primary care provider for further evaluation of the symptoms. I discussed with the patient/guardian the need to see the rehab tech for further evaluation of the symptoms. Administered Medications: 07:16 Drug: Albuterol - atroVENT (3:1) (2.5 mg - 0.5 mg) 3 ml Route: Nebulizer; sv 07:16 Drug: predniSONE 40 mg Route: PO; sv 07:16 Drug: Pepcid 20 mg Route: PO; sv 07:16 Drug: Magnesium 400 mg Route: PO; sv 07:40 Not Given (Patient Refused; stated it makes her vomit): Tussionex Pennkinetic ER 5 ml sv PO once 08:13 Drug: Albuterol 2.5 mg Route: Inhalation; ph Disposition: 15:53 Co-signature as Attending Physician, Ray Marquez MD I agree with the assessment and yanet plan of care. Disposition: 11/14/18 08:36 Discharged to Home. Impression: Unspecified asthma with (acute) exacerbation. - Condition is Stable. - Discharge Instructions: Asthma, Adult, Asthma, Pediatric, Form - Asthma Action Plan, Adult. - Prescriptions for Zyrtec 10 mg Oral Tablet - take 1 tablet by ORAL route once daily As needed; 20 tablet. Albuterol Sulfate 2.5 mg /3 mL (0.083 %) Inhalation Solution for Nebulization - inhale 1 unit by NEBULIZATION route every 8 hours As needed; 2 box. Prednisone 20 mg Oral Tablet - take 2 tablet by ORAL route once daily for 5 days; 10 tablet. Albuterol Sulfate 90 mcg/actuation Inhalation - inhale 1-2 puff by INHALATION route every 4-6 hours; 2 Inhaler. Advair Diskus 500- 50 mcg/Dose Inhalation Disk with Device - inhale 1 puff by INHALATION route every 12 hours; 1 packet. - Medication Reconciliation Form, Thank You Letter, Antibiotic Education, Prescription Opioid Use form. - Follow up: Private Physician; When: 2 - 3 days; Reason: Recheck today's complaints, Continuance of care, Re-evaluation by your physician. Follow up: Emergency Department; When: As needed; Reason: Trouble breathing, Worsening of condition. Signatures: Ana Rojas RN RN sv Anderson, Corey, MD MD cha Therrien, Shelly, LABEL PRESS OPERATOR-C LABEL PRESS OPERATOR-Csnw Yenni Carson RN RN Mary Harrington RN RN tl2 Corrections: (The following items were deleted from the chart) 08:59 08:36 11/14/2018 08:36 Discharged to Home. Impression: Unspecified asthma with (acute) sv exacerbation. Condition is Stable. Forms are Medication Reconciliation Form, Thank You Letter, Antibiotic Education, Prescription Opioid Use. Follow up: Private Physician; When: 2 - 3 days; Reason: Recheck today's complaints, Continuance of care, Re-evaluation by your physician. Follow up: Emergency Department; When: As needed; Reason: Trouble breathing, Worsening of condition. snw
--- NOTE | 2018-11-14 08:36 | ER ---
Nurse's Notes [facility] Name: Najma Wood Age: 38 yrs Sex: Female : 1980 Arrival Date: 11/14/2018 Time: 06:49 Bed 7 Private MD: Diagnosis: Unspecified asthma with (acute) exacerbation Presentation: 11/14 07:05 Presenting complaint: Patient states: asthma and breathing difficulty since last night. tl2 Transition of care: patient was not received from another setting of care. Onset of symptoms was November 14, 2018. Risk Assessment: Do you want to hurt yourself or someone else? Patient reports no desire to harm self or others. Initial Sepsis Screen: Does the patient meet any 2 criteria? No. Patient's initial sepsis screen is negative. Does the patient have a suspected source of infection? No. Patient's initial sepsis screen is negative. Care prior to arrival: None. 07:05 Method Of Arrival: Ambulatory tl2 07:05 Acuity: SHILPA 3 tl2 Historical: - Allergies: 07:07 NKA; tl2 - Home Meds: 07:07 Prednisone Oral [Active]; proair daily [Active]; tl2 - PMHx: 07:07 Asthma; Deaf; tl2 - Immunization history:: Adult Immunizations up to date. - Social history:: Smoking status: Patient/guardian denies using tobacco. - Ebola Screening: : No symptoms or risks identified at this time. Screenin:08 Abuse screen: Denies threats or abuse. Nutritional screening: No deficits noted. tl2 Tuberculosis screening: No symptoms or risk factors identified. Fall Risk None identified. 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 sv 07:05 General: Appears in no apparent distress. uncomfortable, Behavior is calm, cooperative, sv appropriate for age. Pain: Complains of pain in chest. Neuro: Level of Consciousness is awake, alert, obeys commands, Oriented to person, place, time, situation, Moves all extremities. Full function Gait is steady. Cardiovascular: Heart tones S1 S2 present Patient's skin is warm and dry. Respiratory: Airway is patent Respiratory effort is even, labored, Respiratory pattern is symmetrical, tachypnea Breath sounds are diminished bilaterally. Derm: Skin is pink, warm \T\ dry. 07:30 Reassessment: Patient appears in no apparent distress at this time. Patient and/or sv family updated on plan of care and expected duration. Pain level reassessed. Patient is alert, oriented x 3, equal unlabored respirations, skin warm/dry/pink. Pt reports some improvement. Patient states symptoms have improved. 08:58 Reassessment: Patient appears in no apparent distress at this time. Patient and/or sv family updated on plan of care and expected duration. Pain level reassessed. Patient is alert, oriented x 3, equal unlabored respirations, skin warm/dry/pink. Patient states feeling better. Patient states symptoms have improved. Vital Signs: 07:01 BP 162 / 98; Pulse 105; Resp 20; Temp 97.7(O); Pulse Ox 97% on R/A; Height 4 ft. 10 in. tl2 (147.32 cm); 07:31 BP 121 / 81; Pulse 87; Resp 22; Pulse Ox 100% ; sv 08:00 BP 115 / 93; Pulse 78; Resp 20; Pulse Ox 95% ; sv 08:55 BP 117 / 90; Pulse 79; Resp 18; Pulse Ox 99% on R/A; sv ED Course: 06:49 Patient arrived in ED. al2 06:55 [facility] Angel[facility]C [facility] snw 06:55 Ray Marquez MD is Attending Physician. snw 07:05 Ana Rojas, JOSE LUIS is Primary Nurse. sv 07:06 Triage completed. tl2 07:07 Arm band placed on right wrist. tl2 07:08 Patient has correct armband on for positive identification. Bed in low position. Call tl2 light in reach. Side rails up X 1. 08:58 No provider procedures requiring assistance completed. Patient did not have IV access sv during this emergency room visit. Administered Medications: 07:16 Drug: Albuterol - atroVENT (3:1) (2.5 mg - 0.5 mg) 3 ml Route: Nebulizer; sv 07:16 Drug: predniSONE 40 mg Route: PO; sv 07:16 Drug: Pepcid 20 mg Route: PO; sv 07:16 Drug: Magnesium 400 mg Route: PO; sv 07:40 Not Given (Patient Refused; stated it makes her vomit): Tussionex Pennkinetic ER 5 ml sv PO once 08:13 Drug: Albuterol 2.5 mg Route: Inhalation; ph Outcome: 08:36 Discharge ordered by . snw 08:58 Discharged to home ambulatory, [facility] #[id number] used. 08:58 Condition: stable 08:58 Discharge instructions given to patient, Instructed on discharge instructions, follow up and referral plans. medication usage, Demonstrated understanding of instructions, follow-up care, medications, Prescriptions given X 4. 08:59 Patient left the ED. sv Signatures: Ana Rojas RN RN Camelia Angelo, PATTERN GATER-C PATTERN GATER-Csnw Yenni Carson RN RN Harrington, Mary RN RN tl2 Louie Wynn Angelica al2 Corrections: (The following items were deleted from the chart) 07:08 07:01 BP 162 / 98; Pulse 105bpm; Resp 20bpm; Pulse Ox 97% RA; Temp 97.7F Oral; oe tl2
[2018-11-14] MEDS ORDERED: NA CHLORIDE 0.9% 500 ML ONE (12:07)
[2018-11-14] MEDS ORDERED: LEVALBUTEROL 1.25 MG/3 ML NEB ONE (12:07)
[2018-11-14] MEDS ORDERED: MAGNESIUM SULFATE 1 gm IVPB 1 GM/100 ML BAG IV ONE (12:08)
== END 2018-11-14 08:59 | disposition home or self-care (01) ==
LOC: ER 06:49
DX: J45.901 Unspecified asthma with (acute) exacerbation (principal); H91.90 Unspecified hearing loss, unspecified ear
CPT/HCPCS: 94640; 99284; J3475; J7512

== ENCOUNTER 2019-01-18 01:27 | Emergency (ER) | payer MEDICAID ==
[2019-01-18] MEDS ORDERED: LEVALBUTEROL 1.25 MG/3 ML NEB ONE (01:58)
[2019-01-18] MEDS ORDERED: METHYLPREDNISOLONE 125 MG INJ ONE (01:58)
[2019-01-18] MEDS ORDERED: HYDROCODONE/CHLORPHEN 5 ML/OSYR ONE (01:59)
[2019-01-18] MEDS ORDERED: NA CHLORIDE 0.9% 500 ML ONE (01:59)
[2019-01-18 02:02] LABS: Absolute Lymphocytes (CBC) 3.3 K/uL (0.7-4.9); Absolute Monocytes 0.5 K/uL (0.1-1.3); Absolute Neutrophil 5.4 K/uL (1.8-8.0); Basophils % 0.5 % (0-1.3); Eosinophils % 4.8 % (0-4.4); Hematocrit 41.2 % (36.0-45.0); Lymphocytes % 33.8 % (15.3-44.8); MPV 8.3 fL (7.6-11.3); Monocytes % 5.3 % (3.3-12.3); RBC Red Blood Cell Count 4.56 M/uL (3.86-4.86)
[2019-01-18 02:16] LABS: Potassium 3.4 mmol/L (3.5-5.1)
--- NOTE | 2019-01-18 04:06 | ER ---
Nurse's Notes [facility] Name: Najma Wood Age: 38 yrs Sex: Female : 1980 Arrival Date: 01/18/2019 Time: :27 Bed 17 Private MD: Diagnosis: Unspecified asthma with (acute) exacerbation Presentation: 01/18 01:30 Presenting complaint: Patient states: "difficulty breathing and I cough a lot lately cc3 and the right side of my head hurts when I cough". 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 Transition of care: patient was not received from another setting of care. Onset of symptoms was January 18, 2019. Risk Assessment: Do you want to hurt yourself or someone else? Patient reports no desire to harm self or others. Initial Sepsis Screen: Does the patient meet any 2 criteria? No. Patient's initial sepsis screen is negative. Does the patient have a suspected source of infection? No. Patient's initial sepsis screen is negative. Care prior to arrival: None. 01:30 Method Of Arrival: Ambulatory cc3 01:30 Acuity: SHILPA 3 cc3 Triage Assessment: 01:30 Headache History: The patient has had previous headaches and this one is more severe cc3 than previous episodes. General: Appears in no apparent distress. uncomfortable, Behavior is cooperative. Pain: Complains of pain in head Pain does not radiate. Pain currently is 7 out of 10 on a pain scale. Pain began week and a half ago Also complains of shortness of breath. EENT: No signs and/or symptoms were reported regarding the EENT system. Neuro: Level of Consciousness is awake, alert, obeys commands, Oriented to person, place, time, situation, Appropriate for age. Cardiovascular: Denies chest pain, Patient's skin is warm and dry. Respiratory: Airway is patent Respiratory effort is even, unlabored, Respiratory pattern is regular, symmetrical. GI: Abdomen is round non-distended. : No signs and/or symptoms were reported regarding the genitourinary system. Derm: No signs and/or symptoms reported regarding the dermatologic system. Musculoskeletal: Circulation, motion, and sensation intact. Range of motion: intact in all extremities. 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 - Social history:: Smoking status: Patient/guardian denies using tobacco, never smoked. - Family history:: not pertinent. - Ebola Screening: : No symptoms or risks identified at this time. - Hospitalizations: : No recent hospitalization is reported. Screenin:30 Abuse screen: Denies threats or abuse. Denies injuries from another. Nutritional cc3 screening: No deficits noted. Tuberculosis screening: No symptoms or risk factors identified. Fall Risk Ambulatory Aid- None/Bed Rest/Nurse Assist (0 pts). Gait- Normal/Bed Rest/Wheelchair (0 pts) Mental Status- Oriented to own ability (0 pts). Assessment: 01:30 General: see triage assessment. cc3 02:20 Reassessment: Patient appears in no apparent distress at this time. Patient and/or cc3 family updated on plan of care and expected duration. Pain level reassessed. Patient is alert, oriented x 3, equal unlabored respirations, skin warm/dry/pink. 03:30 Reassessment: Patient appears in no apparent distress at this time. Patient and/or cc3 family updated on plan of care and expected duration. Pain level reassessed. Patient is alert, oriented x 3, equal unlabored respirations, skin warm/dry/pink. 04:15 Reassessment: Patient appears in no apparent distress at this time. Patient and/or cc3 family updated on plan of care and expected duration. Pain level reassessed. Patient is alert, oriented x 3, equal unlabored respirations, skin warm/dry/pink. Dr. Billings discharged the patient home with prescription given. IV cannula removed and patient left ER vitally stable and ambulatory with her . Vital Signs: 01:30 BP 129 / 84; Pulse 78; Resp 20 S; Temp 98.6(O); Pulse Ox 98% on R/A; Height 4 ft. 11 cc3 in. (149.86 cm) (R); 02:30 BP 117 / 85; Pulse 86; Resp 20 S; Pulse Ox 99% on R/A; cc3 03:20 BP 121 / 85; Pulse 84; Resp 19 S; Pulse Ox 99% on R/A; cc3 04:00 BP 119 / 84; Pulse 85; Resp 19 S; Pulse Ox 99% on R/A; cc3 ED Course: 01:27 Patient arrived in ED. ds1 01:30 Betzaida Cortez is Primary Nurse. cc3 01:30 Arm band placed on right wrist. Patient notified of wait time. cc3 01:30 Patient has correct armband on for positive identification. Bed in low position. Call cc3 light in reach. Side rails up X 1. athletic monitor on. Pulse ox on. NIBP on. 01:31 Rayray Billings MD is Attending Physician. rn 01:40 Inserted saline lock: 20 gauge in right antecubital area, using aseptic technique. cc3 Blood collected. inserted by JOSE LUIS Medina. 02:07 Triage completed. cc3 04:15 No provider procedures requiring assistance completed. IV discontinued, intact, cc3 bleeding controlled, No redness/swelling at site. Pressure dressing applied. Administered Medications: 01:50 Drug: Xopenex (3) 1.25 mg Route: Inhalation; cc3 02:15 Follow up: Response: No adverse reaction cc3 01:55 Drug: SOLU-Medrol 125 mg Route: IVP; Site: right antecubital; cc3 02:15 Follow up: Response: No adverse reaction; Marked relief of symptoms cc3 02:03 Not Given (Patient Refused): Tussionex Pennkinetic ER 5 ml PO once cc3 02:10 Drug: NS 0.9% 500 ml Route: IV; Rate: bolus; Site: right antecubital; cc3 02:40 Follow up: Response: No adverse reaction; IV Status: Completed infusion; IV Intake: cc3 500ml Intake: 02:40 IV: 500ml; Total: 500ml. cc3 Outcome: 04:05 Discharge ordered by . rn 04:15 Discharged to home ambulatory, with family. cc3 04:15 Condition: stable 04:15 Discharge instructions given to patient, Instructed on discharge instructions, follow up and referral plans. medication usage, Demonstrated understanding of instructions, follow-up care, medications, Prescriptions given X 3. 04:16 Patient left the ED. cc3 Signatures: Amisha Briggs ds1 Rayray Billings MD MD rn Cordel, Charlene cc3 Corrections: (The following items were deleted from the chart) 02:08 01:30 Presenting complaint: Patient states: "difficulty breathing and I cough a lot cc3 lately and the right side of my head hurts when I cough" cc3 02:55 01:30 Presenting complaint: Patient states: "difficulty breathing and I cough a lot cc3 lately and the right side of my head hurts when I cough". Patient is mute so she's writing her statements. cc3
--- NOTE | 2019-01-18 04:06 | EDPHYS ---
Physician Documentation [facility] Name: Najma Wood Age: 38 yrs Sex: Female : 1980 Arrival Date: 01/18/2019 Time: 01:27 Bed 17 Private MD: ED Physician Rayray Billings HPI: 01/18 01:38 This 38 yrs old Female presents to ER via Unassigned with complaints of rn Asthma Exacerbation, Headache. 01:38 The patient has shortness of breath at rest, with light activity. Onset: The rn symptoms/episode began/occurred 1 week(s) ago. Duration: The symptoms are continuous. The patient's shortness of breath is aggravated by exertion, light activity. Severity of symptoms: At their worst the symptoms were moderate in the emergency department the symptoms are unchanged. The patient has experienced similar episodes in the past. The patient has not recently seen a physician. Reports sob for 1 week, assoc with non-productive cough, + associated headache. No fever. NO trauma. . 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 - Social history:: Smoking status: Patient/guardian denies using tobacco, never smoked. - Family history:: not pertinent. - Ebola Screening: : No symptoms or risks identified at this time. - Hospitalizations: : No recent hospitalization is reported. ROS: 01:38 Constitutional: Negative for fever, chills, and weight loss, Eyes: Negative for injury, rn pain, redness, and discharge, Cardiovascular: Negative for chest pain, palpitations, and edema, Respiratory: Negative for pleuritic chest pain Abdomen/GI: Negative for abdominal pain, nausea, vomiting, diarrhea, and constipation, Back: Negative for injury and pain, MS/Extremity: Negative for injury and deformity, Skin: Negative for injury, rash, and discoloration, Neuro: Negative for weakness, numbness, tingling, and seizure. Exam: 01:38 Constitutional: This is a well developed, well nourished patient who is awake, alert, rn and in no acute distress. Head/Face: Normocephalic, atraumatic. Eyes: Pupils equal round and reactive to light, extra-ocular motions intact. Lids and lashes normal. Conjunctiva and sclera are non-icteric and not injected. Cornea within normal limits. Periorbital areas with no swelling, redness, or edema. Cardiovascular: Regular rate and rhythm with a normal S1 and S2. No gallops, murmurs, or rubs. Normal PMI, no JVD. No pulse deficits. Respiratory: + mild tachypnea, + diffuse exp wheezing, no retractions Skin: Warm, dry with normal turgor. Normal color with no rashes, no lesions, and no evidence of cellulitis. MS/ Extremity: Pulses equal, no cyanosis. Neurovascular intact. Full, normal range of motion. Equal circumference. Neuro: Awake and alert, GCS 15, oriented to person, place, time, and situation. Cranial nerves II-XII grossly intact. Motor strength 5/5 in all extremities. Sensory grossly intact. Cerebellar exam normal. Normal gait. Vital Signs: 01:30 BP 129 / 84; Pulse 78; Resp 20 S; Temp 98.6(O); Pulse Ox 98% on R/A; Height 4 ft. 11 cc3 in. (149.86 cm) (R); 02:30 BP 117 / 85; Pulse 86; Resp 20 S; Pulse Ox 99% on R/A; cc3 03:20 BP 121 / 85; Pulse 84; Resp 19 S; Pulse Ox 99% on R/A; cc3 04:00 BP 119 / 84; Pulse 85; Resp 19 S; Pulse Ox 99% on R/A; cc3 MDM: 01:31 Patient medically screened. rn 04:02 Differential diagnosis: asthma, Bronchitis pneumonia. Data reviewed: vital signs, rn nurses notes, lab test result(s), radiologic studies, and as a result, I will discharge patient. 04:04 Counseling: I had a detailed discussion with the patient and/or guardian regarding: the rn historical points, exam findings, and any diagnostic results supporting the discharge/admit diagnosis, lab results, radiology results, the need for outpatient follow up, to return to the emergency department if symptoms worsen or persist or if there are any questions or concerns that arise at home. Response to treatment: the patient's symptoms have markedly improved after treatment, and as a result, I will discharge patient. Special discussion: I discussed with the patient/guardian in detail that at this point there is no indication for admission to the hospital. It is understood, however, that if the symptoms persist or worsen the patient needs to return immediately for re-evaluation. ED course: Pt requesting to go home, states feels much better, will refill inhaler and nebulizer albuterol along with steroids. . 01/18 01:36 Order name: CBC with Diff rn 01/18 01:36 Order name: Basic Metabolic Panel rn 01/18 01:36 Order name: Flu rn 01/18 01:36 Order name: Strep rn 01/18 02:07 Order name: CBC with Automated Diff; Complete Time: 03:55 EDMS 01/18 02:16 Order name: Basic Metabolic Panel; Complete Time: 03:55 EDMS 01/18 01:36 Order name: IV Start; Complete Time: 02:04 rn 01/18 01:36 Order name: XRAY Chest (1 view) rn 01/18 02:22 Order name: Group A Streptococcus Rapid Sc; Complete Time: 03:55 EDMS 01/18 02:22 Order name: Influenza Screen (A ; Complete Time: 03:55 EDMS Administered Medications: 01:50 Drug: Xopenex (3) 1.25 mg Route: Inhalation; cc3 02:15 Follow up: Response: No adverse reaction cc3 01:55 Drug: SOLU-Medrol 125 mg Route: IVP; Site: right antecubital; cc3 02:15 Follow up: Response: No adverse reaction; Marked relief of symptoms cc3 02:03 Not Given (Patient Refused): Tussionex Pennkinetic ER 5 ml PO once cc3 02:10 Drug: NS 0.9% 500 ml Route: IV; Rate: bolus; Site: right antecubital; cc3 02:40 Follow up: Response: No adverse reaction; IV Status: Completed infusion; IV Intake: cc3 500ml Disposition: 01/18/19 04:05 Discharged to Home. Impression: Unspecified asthma with (acute) exacerbation. - Condition is Stable. - Discharge Instructions: Asthma, Adult. - Prescriptions for Prednisone 20 mg Oral Tablet - take 3 tablet by ORAL route once daily for 5 days; 15 tablet. Albuterol Sulfate 2.5 mg /3 mL (0.083 %) Inhalation Solution for Nebulization - inhale 1 unit by NEBULIZATION route every 8 hours As needed; 2 box. Albuterol Sulfate 90 mcg/actuation Inhalation - inhale 1-2 puff by INHALATION route every 4-6 hours; 2 Inhaler. - Medication Reconciliation Form, Thank You Letter, Antibiotic Education, Prescription Opioid Use form. - Follow up: Private Physician; When: As needed; Reason: Recheck today's complaints, Re-evaluation by your physician. - Problem is new. - Symptoms have improved. Signatures: Dispatcher [employer] EDMS Rayray Billings MD MD rn Cordel, Charlene cc3 Corrections: (The following items were deleted from the chart) 04:16 04:05 01/18/2019 04:05 Discharged to Home. Impression: Unspecified asthma with (acute) cc3 exacerbation. Condition is Stable. Forms are Medication Reconciliation Form, Thank You Letter, Antibiotic Education, Prescription Opioid Use. Follow up: Private Physician; When: As needed; Reason: Recheck today's complaints, Re-evaluation by your physician. Problem is new. Symptoms have improved. rn
--- NOTE | 2019-01-18 10:03 | RAD REPORT ---
EXAM DESCRIPTION: Marsha Single View01/18/2019 2:24 am CLINICAL HISTORY: cough COMPARISON: August 2018 FINDINGS: The lungs appear clear of acute infiltrate. The heart is normal size IMPRESSION: No acute abnormalities displayed
== END 2019-01-18 04:16 | disposition home or self-care (01) ==
LOC: ER 01:27
DX: J45.901 Unspecified asthma with (acute) exacerbation (principal); H91.90 Unspecified hearing loss, unspecified ear; Z88.0 Allergy status to penicillin
CPT/HCPCS: 36415; 71045; 80048; 85025; 87070; 87081; 87804; 96374; 99285; J2930

== ENCOUNTER 2019-02-26 16:57 | Emergency (ER) | payer MEDICAID, OTHER ==
[2019-02-26] MEDS ORDERED: ALBUTEROL 2.5 MG/3 ML NEB SOL ONE (18:30)
[2019-02-26] MEDS ORDERED: HYDROCODONE/CHLORPHEN 5 ML/OSYR ONE (18:30)
[2019-02-26] MEDS ORDERED: IPRATROPIUM BROM 0.5MG/2.5ML ONE (18:30)
[2019-02-26] MEDS ORDERED: NA CHLORIDE 0.9% 1,000 ML ONE (18:31)
[2019-02-26] MEDS ORDERED: ACETAMINOPHEN 500 MG TAB ONE (18:31)
--- NOTE | 2019-02-26 18:43 | RAD REPORT ---
EXAM DESCRIPTION: RAD - Chest Pa And Lat (2 Views) - 02/26/2019 6:08 pm CLINICAL HISTORY: COUGH Chest pain. COMPARISON: Chest Single View dated 01/18/2019; Chest Single View dated 09/13/2018; Chest Single View dated 07/15/2018; Chest Single View dated 12/22/2017 FINDINGS: The lungs are clear. The heart is mildly enlarged in size. No displaced fractures.
[2019-02-26] MEDS ORDERED: KETOROLAC 30 MG/ML INJ ONE (19:09)
[2019-02-26 19:12] LABS: Absolute Lymphocytes (CBC) 1.9 K/uL (0.7-4.9); Absolute Monocytes 0.3 K/uL (0.1-1.3); Absolute Neutrophil 4.2 K/uL (1.8-8.0); Basophils % 0.4 % (0-1.3); Eosinophils % 4.9 % (0-4.4); Hematocrit 42.9 % (36.0-45.0); Lymphocytes % 28.7 % (15.3-44.8); MPV 8.3 fL (7.6-11.3); Monocytes % 4.1 % (3.3-12.3); RBC Red Blood Cell Count 4.73 M/uL (3.86-4.86)
[2019-02-26 19:16] LABS: ALT/SGPT 19 U/L (12-78); AST/SGOT 9 U/L (15-37); Albumin 3.9 g/dL (3.4-5.0); Alkaline Phosphatase 81 U/L (45-117); BUN Blood Urea Nitrogen 9 mg/dL (7-18); Bicarbonate 27 mmol/L (21-32); Bilirubin Direct 0.2 mg/dL (0-0.2); Bilirubin Total 0.8 mg/dL (0.2-1.0); Glucose Level 84 mg/dL (74-106); Magnesium 2.2 mg/dL (1.8-2.4); NT PRO-BNP 106 pg/mL (<125); Potassium 3.7 mmol/L (3.5-5.1); Protein, Total 7.7 g/dL (6.4-8.2); Sodium Level 141 mmol/L (136-145); Troponin (Emerg Dept Use Only) < 0.02 ng/mL (0.0-0.045)
[2019-02-26 19:30] LABS: Protime INR 1.04
--- NOTE | 2019-02-26 21:53 | EDPHYS ---
Physician Documentation [facility] Name: Najma Wood Age: 38 yrs Sex: Female : 1980 Arrival Date: 02/26/2019 Time: 17:00 Bed 24 Private MD: None, None ED Physician Rayray Billings HPI: 02/26 18:00 This 38 yrs old Female presents to ER via Wheelchair with complaints of Flank cp Pain, Asthma Exacerbation. 18:00 The patient or guardian reports cough, that is intermittent. cp 18:00 Onset: The symptoms/episode began/occurred 1 week(s) ago. Associated signs and cp symptoms: Pertinent positives: urinary frequency, left flank pain since yesterday. Severity of symptoms: in the emergency department the symptoms are unchanged despite home interventions. Historical: - Allergies: 17:05 PENICILLINS; aa5 - PMHx: 17:05 Asthma; Deaf; aa5 - PSHx: 17:05 None; aa5 - Immunization history:: Adult Immunizations unknown. - Social history:: Smoking status: Patient/guardian denies using tobacco. - Ebola Screening: : No symptoms or risks identified at this time. ROS: 18:05 Constitutional: Negative for body aches, chills, fever, poor PO intake. cp 18:05 Eyes: Negative for injury, pain, redness, and discharge. cp 18:05 ENT: Negative for drainage from ear(s), ear pain, difficulty swallowing, difficulty handling secretions. 18:05 Cardiovascular: Negative for edema, palpitations. 18:05 Respiratory: Positive for cough, "sounds productive", shortness of breath, wheezing. 18:05 Abdomen/GI: Negative for vomiting, diarrhea, constipation. 18:05 Back: Positive for flank pain, on the left. 18:05 Neuro: Negative for altered mental status, headache. 18:05 All other systems are negative. Exam: 18:15 Constitutional: The patient appears in no acute distress, alert, awake, cp non-diaphoretic, non-toxic, well developed, well nourished, uncomfortable. 18:15 Head/Face: Normocephalic, atraumatic. Eyes: Pupils equal round and reactive to light, cp extra-ocular motions intact. Lids and lashes normal. Conjunctiva and sclera are non-icteric and not injected. Cornea within normal limits. Periorbital areas with no swelling, redness, or edema. ENT: Nares patent. No nasal discharge, no septal abnormalities noted. Tympanic membranes are normal and external auditory canals are clear. Oropharynx with no redness, swelling, or masses, exudates, or evidence of obstruction, uvula midline. Mucous membranes moist. 18:15 Chest/axilla: Inspection: normal, Palpation: is normal, no crepitus, no tenderness. 18:15 Cardiovascular: Rate: normal, Rhythm: regular, Edema: is not appreciated, JVD: is not appreciated. 18:15 Respiratory: the patient does not display signs of respiratory distress, Respirations: normal, no use of accessory muscles, no retractions, no splinting, no tachypnea, labored breathing, is not present, Breath sounds: are clear throughout, no decreased breath sounds, no stridor, no wheezing. 18:15 Abdomen/GI: Inspection: abdomen appears normal, Palpation: abdomen is soft and non-tender, in all quadrants. 18:15 Back: pain, that is moderate, of the left mid back and left lateral lower rib area, ROM is painful. 18:15 Skin: cellulitis, is not appreciated, no rash present. Vital Signs: 17:07 BP 124 / 71; Pulse 78; Resp 16 S; Temp 98.1(O); Pulse Ox 98% on R/A; Weight 58.97 kg aa5 (R); Pain 10/10; 18:00 BP 126 / 78; Pulse 81; Resp 18; Pulse Ox 98% on R/A; ph 18:43 BP 118 / 74; Pulse 86; Resp 20; Pulse Ox 100% on Nebulizer Mask; ph 19:15 BP 126 / 68; Pulse 65; Resp 18; Pulse Ox 98% on R/A; ph 20:20 BP 123 / 77; Pulse 79; Resp 17; Pulse Ox 99% ; Pain 0/10; rr5 21:00 BP 117 / 65; Pulse 69; Resp 16; Pulse Ox 99% ; rr5 22:10 BP 121 / 70; Pulse 75; Resp 17; Pulse Ox 99% ; rr5 MDM: 17:27 Patient medically screened. cp 21:50 Data reviewed: vital signs, nurses notes, lab test result(s), EKG, radiologic studies, cp plain films. 21:50 Test interpretation: by ED physician or midlevel provider: ECG, plain radiologic cp studies. Counseling: I had a detailed discussion with the patient and/or guardian regarding: the historical points, exam findings, and any diagnostic results supporting the discharge/admit diagnosis, lab results, radiology results, to return to the emergency department if symptoms worsen or persist or if there are any questions or concerns that arise at home. Response to treatment: the patient's symptoms have markedly improved after treatment, and as a result, I will discharge patient. ED course: VSS. Chest xray negative for infiltrate of rib fracture. Pain and cough improved with meds. Will discharge to home for continued monitoring. 02/26 17:52 Order name: Influenza Screen (a \\T\\ B) cp 02/26 17:52 Order name: LFT's; Complete Time: 19:30 cp 02/26 17:52 Order name: Basic Metabolic Panel; Complete Time: 19:30 cp 02/26 19:31 Interpretation: Normal except: GFR 78. 02/26 17:52 Order name: CBC with Diff; Complete Time: 20:17 cp 02/26 17:52 Order name: Magnesium; Complete Time: 19:30 cp 02/26 17:52 Order name: NT PRO-BNP; Complete Time: 19:30 cp 02/26 17:52 Order name: XRAY Chest Pa And Lat (2 Views); Complete Time: 19:05 cp 02/26 19:05 Interpretation: Report reviewed. 02/26 17:52 Order name: PT-INR; Complete Time: 20:17 cp 02/26 17:52 Order name: Troponin (emerg Dept Use Only); Complete Time: 19:30 cp 02/26 17:53 Order name: Influenza Screen (A ; Complete Time: 19:30 EDMS 02/26 21:16 Order name: Urine Dipstick--Ancillary (enter results) 6 02/26 21:16 Order name: Urine --Ancillary (enter results) 6 02/26 17:52 Order name: Cardiac monitoring; Complete Time: 18:09 cp 02/26 17:52 Order name: EKG - Nurse/Tech; Complete Time: 18:42 cp 02/26 17:52 Order name: IV Saline Lock; Complete Time: 18:09 cp 02/26 17:52 Order name: Labs collected and sent; Complete Time: 18:42 cp 02/26 17:52 Order name: O2 Per Protocol; Complete Time: 18:10 cp 02/26 17:52 Order name: O2 Sat Monitoring; Complete Time: 18:10 cp 02/26 20:18 Order name: Urine Dipstick-Ancillary (obtain specimen); Complete Time: 21:41 cp 02/26 20:18 Order name: Urine Test (obtain specimen); Complete Time: 21:41 cp Administered Medications: 18:41 Drug: Albuterol - atroVENT (3:1) (2.5 mg - 0.5 mg) 3 ml Route: Nebulizer; ph 19:13 Follow up: Response: No adverse reaction ph 18:41 Drug: Tylenol 1000 mg Route: PO; ph 19:14 Follow up: Response: No adverse reaction ph 18:41 Drug: NS 0.9% 1000 ml Route: IV; Rate: 1 bolus; Site: left antecubital; ph 21:00 Follow up: Response: No adverse reaction; IV Status: Completed infusion; IV Intake: rr5 1000ml 18:42 Not Given (Patient Refused; States that it causes N/V): Tussionex Pennkinetic ER 5 ml ph PO once 19:13 Drug: TORadol 30 mg Route: IVP; Site: left antecubital; ph 22:00 Follow up: Response: No adverse reaction rr5 Disposition: 02/26/19 21:53 Discharged to Home. Impression: Unspecified asthma with (acute) exacerbation, Acute bronchitis, unspecified. - Condition is Stable. - Discharge Instructions: Acute Bronchitis, Adult, Asthma, Adult. - Prescriptions for Tessalon Perles 100 mg Oral Capsule - take 2 capsule by ORAL route every 8 hours As needed; 30 capsule. Albuterol Sulfate 2.5 mg /3 mL (0.083 %) Inhalation Solution for Nebulization - inhale 1 unit by NEBULIZATION route every 8 hours As needed; 1 box. Zithromax Z- Steve 250 mg Oral Tablet - take 1 tablet by ORAL route as directed for 5 days Day 1 - take two (2) tablets one time. Day 2, 3, 4 , 5 take one (1) tablet once daily.; 6 tablet. Flovent HFA 44 mcg/actuation Inhalation Aerosol - inhale 2 puffs by INHALATION route 2 times per day; 1 unit. Albuterol Sulfate 90 mcg/actuation - inhale 1-2 puff by INHALATION route every 4-6 hours; 1 Inhaler. - Medication Reconciliation Form, Thank You Letter, Antibiotic Education, Prescription Opioid Use form. - Follow up: Private Physician; When: 2 - 3 days; Reason: Recheck today's complaints. - Problem is new. - Symptoms have improved. Addendum: 03/02/2019 07:01 Co-signature as Attending Physician, Rayray Billings MD. r n Signatures: Dispatcher [employer] EDMS Rayray Billings MD MD rn Sailaja Baltazar RN RN aa5 Yenni Carson RN RN Ray Chavarria PA PA cp Roque, Raymond RN RN rr5 Corrections: (The following items were deleted from the chart) 02/26 22:14 21:53 02/26/2019 21:53 Discharged to Home. Impression: Unspecified asthma with (acute) rr5 exacerbation; Acute bronchitis, unspecified. Condition is Stable. Forms are Medication Reconciliation Form, Thank You Letter, Antibiotic Education, Prescription Opioid Use. Follow up: Private Physician; When: 2 - 3 days; Reason: Recheck today's complaints. Problem is new. Symptoms have improved. cp
--- NOTE | 2019-02-26 21:53 | ER ---
Nurse's Notes [facility] Name: Najma Wood Age: 38 yrs Sex: Female : 1980 Arrival Date: 02/26/2019 Time: 17:00 Bed 24 Private MD: None, None Diagnosis: Unspecified asthma with (acute) exacerbation;Acute bronchitis, unspecified Presentation: 02/26 17:05 Presenting complaint: Patient states: left flank pain that began last night. Pt states aa5 "I also feel like my asthma is flaring up and my left side hurts when I cough". pt also reports urinary frequency. denies nausea, denies vomiting. 17:05 Transition of care: patient was not received from another setting of care. Onset of aa5 symptoms was February 2019. Risk Assessment: Do you want to hurt yourself or someone else? Patient reports no desire to harm self or others. Initial Sepsis Screen: Does the patient meet any 2 criteria? No. Patient's initial sepsis screen is negative. Does the patient have a suspected source of infection? No. Patient's initial sepsis screen is negative. Care prior to arrival: None. 17:05 Acuity: SHILPA 3 aa5 17:05 Method Of Arrival: Wheelchair aa5 Historical: - Allergies: 17:05 PENICILLINS; aa5 - PMHx: 17:05 Asthma; Deaf; aa5 - PSHx: 17:05 None; aa5 - Immunization history:: Adult Immunizations unknown. - Social history:: Smoking status: Patient/guardian denies using tobacco. - Ebola Screening: : No symptoms or risks identified at this time. Screenin:06 Abuse screen: Denies threats or abuse. Denies injuries from another. Nutritional ph screening: No deficits noted. Tuberculosis screening: No symptoms or risk factors identified. Fall Risk None identified. Assessment: 17:45 General: Appears in no apparent distress. uncomfortable, well groomed, Behavior is ph calm, cooperative, appropriate for age, Denies fever. Pain: Complains of pain in left rib area. Neuro: Level of Consciousness is awake, alert, obeys commands, Oriented to person, place, time, situation. Cardiovascular: Capillary refill < 3 seconds in bilateral fingers Patient's skin is warm and dry. Respiratory: Reports cough that is productive, pain with cough pain with movement pain with respiration Airway is patent Respiratory effort is even, unlabored, Respiratory pattern is regular, symmetrical, Denies shortness of breath. GI: No signs and/or symptoms were reported involving the gastrointestinal system. Patient currently denies abdominal pain, diarrhea, nausea, vomiting. : Reports urinary frequency, Denies burning with urination. EENT: Reports nasal congestion Denies pain when swallowing. Derm: Skin is intact, is healthy with good turgor, Skin is pink, warm \\T\\ dry. Musculoskeletal: Circulation, motion, and sensation intact. Range of motion: intact in all extremities. 18:44 Reassessment: Patient appears in no apparent distress at this time. Patient and/or ph family updated on plan of care and expected duration. Pain level reassessed. Patient is alert, oriented x 3, equal unlabored respirations, skin warm/dry/pink. Pt c/o SOB, neb tx administered Spo2 98% on RA prior to breathing tx up to 100% w/ neb mask, other medications also administered, pt refused cough medication at this time, states that it causes N/V, VSS at this time, will continue to monitor. 19:14 Reassessment: Patient appears in no apparent distress at this time. Patient and/or ph family updated on plan of care and expected duration. Pain level reassessed. Patient is alert, oriented x 3, equal unlabored respirations, skin warm/dry/pink. Pt reports that SOB has improved after neb tx, VSS, will continue to monitor. 19:15 General: Appears in no apparent distress. uncomfortable, Behavior is calm, cooperative, rr5 appropriate for age. Pain: Complains of pain in left flank Pain does not radiate. Pain Quality of pain is described as aching, Pain began gradually, Is intermittent. Neuro: Level of Consciousness is awake, alert, obeys commands, Oriented to person, place, time, situation, Appropriate for age. Cardiovascular: Capillary refill < 3 seconds Patient's skin is warm and dry. Respiratory: Reports cough that is pain with cough pain with movement pain with respiration Airway is patent Respiratory effort is even, unlabored, Respiratory pattern is regular, symmetrical, Denies shortness of breath. GI: No signs and/or symptoms were reported involving the gastrointestinal system. : Reports pain in left flank(s), urinary frequency. EENT: patient is deaf and mute. Reports nasal congestion Denies pain when swallowing. Derm: Skin is intact, is healthy with good turgor, Skin is pink, warm \\T\\ dry. Musculoskeletal: Circulation, motion, and sensation intact. Range of motion: intact in all extremities. 20:25 Reassessment: Patient appears in no apparent distress at this time. Patient is alert, rr5 oriented x 3, equal unlabored respirations, skin warm/dry/pink. pain free as written in a pad by the patient. instructed to give urine sample. Patient denies pain at this time. Patient states feeling better. Patient states symptoms have improved. 21:45 Reassessment: Patient appears in no apparent distress at this time. Patient is alert, rr5 oriented x 3, equal unlabored respirations, skin warm/dry/pink. ED provider reassess the patient interpreted by the tile and marble setter explained the result and agreed for discharge. Patient denies pain at this time. 22:10 Reassessment: Patient appears in no apparent distress at this time. Patient is alert, rr5 oriented x 3, equal unlabored respirations, skin warm/dry/pink. discharge instruction given and explained without complaints made. Patient denies pain at this time. Patient states feeling better. Patient states symptoms have improved. Vital Signs: 17:07 BP 124 / 71; Pulse 78; Resp 16 S; Temp 98.1(O); Pulse Ox 98% on R/A; Weight 58.97 kg aa5 (R); Pain 10/10; 18:00 BP 126 / 78; Pulse 81; Resp 18; Pulse Ox 98% on R/A; ph 18:43 BP 118 / 74; Pulse 86; Resp 20; Pulse Ox 100% on Nebulizer Mask; ph 19:15 BP 126 / 68; Pulse 65; Resp 18; Pulse Ox 98% on R/A; ph 20:20 BP 123 / 77; Pulse 79; Resp 17; Pulse Ox 99% ; Pain 0/10; rr5 21:00 BP 117 / 65; Pulse 69; Resp 16; Pulse Ox 99% ; rr5 22:10 BP 121 / 70; Pulse 75; Resp 17; Pulse Ox 99% ; rr5 ED Course: 17:00 Patient arrived in ED. mr 17:01 None, None is Private Physician. mr 17:05 Arm band placed on. aa5 17:12 Triage completed. aa5 17:23 Yenni Carson, RN is Primary Nurse. ph 17:26 Ray Chavarria PA is PHCP. cp 17:26 Rayray Billings MD is Attending Physician. cp 18:06 X-ray completed. Patient tolerated procedure well. Patient moved back from radiology. ml 18:06 Patient has correct armband on for positive identification. Placed in gown. Bed in low ph position. Call light in reach. Side rails up X 1. Pulse ox on. NIBP on. Door closed. Warm blanket given. 18:07 XRAY Chest Pa And Lat (2 Views) In Process Unspecified. EDMS 18:35 Initial lab(s) drawn, by me, sent to lab. Flu and/or RSV swab sent to lab. Inserted ph saline lock: 22 gauge in left antecubital area, using aseptic technique. Blood collected. 18:44 No provider procedures requiring assistance completed. ph 22:10 IV discontinued, intact, bleeding controlled, No redness/swelling at site. Pressure rr5 dressing applied. Administered Medications: 18:41 Drug: Albuterol - atroVENT (3:1) (2.5 mg - 0.5 mg) 3 ml Route: Nebulizer; ph 19:13 Follow up: Response: No adverse reaction ph 18:41 Drug: Tylenol 1000 mg Route: PO; ph 19:14 Follow up: Response: No adverse reaction ph 18:41 Drug: NS 0.9% 1000 ml Route: IV; Rate: 1 bolus; Site: left antecubital; ph 21:00 Follow up: Response: No adverse reaction; IV Status: Completed infusion; IV Intake: rr5 1000ml 18:42 Not Given (Patient Refused; States that it causes N/V): Tussionex Pennkinetic ER 5 ml ph PO once 19:13 Drug: TORadol 30 mg Route: IVP; Site: left antecubital; ph 22:00 Follow up: Response: No adverse reaction rr5 Intake: 21:00 IV: 1000ml; Total: 1000ml. rr5 Outcome: 21:53 Discharge ordered by . cp 22:10 Discharged to home ambulatory, with family. rr5 22:10 Condition: stable rr5 22:10 Discharge instructions given to patient, family, Instructed on discharge instructions, follow up and referral plans. medication usage, Demonstrated understanding of instructions, follow-up care, medications, Prescriptions given X 4. 22:14 Patient left the ED. rr5 Signatures: Dispatcher [employer] EDPA Renee Layne mr Hang, Capri Sailaja Win, RN RN aa5 Yenni Carson RN RN Aura, RABIA Bell cp, Raymond, RN RN rr5 Corrections: (The following items were deleted from the chart) 20:32 19:15 EENT: Reports nasal congestion Denies pain when swallowing rr5 rr5
[2019-02-26 21:57] LABS: Urine Blood TRACE (NEG); Urine Glucose NEGATIVE (NEG); Urine Protein TRACE (NEG); Urine pH 5.5 (5.0-7.0)
[2019-02-26 22:25] VITALS: TEMP 98.1
[2019-02-26 22:33] VITALS: BP 123/77; O2SAT 99
== END 2019-02-26 22:14 | disposition home or self-care (01) ==
LOC: ER 16:57
DX: J45.901 Unspecified asthma with (acute) exacerbation (principal); J20.9 Acute bronchitis, unspecified; Z88.0 Allergy status to penicillin
CPT/HCPCS: 36415; 71046; 80048; 80076; 81003; 81025; 83735; 83880; 84484; 85025; 85610; 87804; 94640; 96361; 96374; 99284; J7030

== ENCOUNTER 2019-03-01 17:40 | Inpatient (IN) | payer MEDICAID ==
[2019-03-01] MEDS ORDERED: ALBUTEROL 2.5 MG/3 ML NEB SOL ONE (17:57)
[2019-03-01] MEDS ORDERED: IPRATROPIUM BROM 0.5MG/2.5ML ONE (17:57)
[2019-03-01] MEDS ORDERED: predniSONE 20 MG TAB ONE (18:00)
[2019-03-01] MEDS ORDERED: METHYLPREDNISOLONE 125 MG INJ ONE (18:08)
[2019-03-01] MEDS ORDERED: MAGNESIUM SULFATE 1 gm IVPB 1 GM/100 ML BAG IV ONE ×2 (18:09→20:15)
[2019-03-01 18:12] LABS: Absolute Lymphocytes (CBC) 0.5 K/uL (0.7-4.9); Absolute Monocytes 0.4 K/uL (0.1-1.3); Absolute Neutrophil 4.2 K/uL (1.8-8.0); Basophils % 0.2 % (0-1.3); Eosinophils % 0.8 % (0-4.4); Hematocrit 42.9 % (36.0-45.0); Lymphocytes % 8.9 % (15.3-44.8); MPV 9.1 fL (7.6-11.3); Monocytes % 7.3 % (3.3-12.3); Protime INR 1.06; RBC Red Blood Cell Count 4.79 M/uL (3.86-4.86)
[2019-03-01 18:29] LABS: ALT/SGPT 23 U/L (12-78); AST/SGOT 21 U/L (15-37); Albumin 4.2 g/dL (3.4-5.0); Alkaline Phosphatase 86 U/L (45-117); BUN Blood Urea Nitrogen 7 mg/dL (7-18); Bicarbonate 27 mmol/L (21-32); Bilirubin Total 0.6 mg/dL (0.2-1.0); Creatine Phosphokinase 97 U/L (26-192); Glucose Level 90 mg/dL (74-106); Potassium 3.5 mmol/L (3.5-5.1); Protein, Total 8.2 g/dL (6.4-8.2); Sodium Level 140 mmol/L (136-145); Troponin (Emerg Dept Use Only) < 0.02 ng/mL (0.0-0.045)
[2019-03-01 18:46] LABS: Urine Blood 1+ (NEG); Urine Glucose NEGATIVE (NEG); Urine Protein TRACE (NEG); Urine Specific Gravity >1.030 (1.005-1.030); Urine pH 5.5 (5.0-7.0)
--- NOTE | 2019-03-01 19:08 | RAD REPORT ---
EXAM DESCRIPTION: CT - Chest For Pe Angio - 03/01/2019 7:02 pm CLINICAL HISTORY: Chest pain. chest pain, shortness of breath COMPARISON: No comparisons TECHNIQUE: CT angiogram of the pulmonary arteries was performed with MIP. All CT scans are performed using dose optimization technique as appropriate and may include automated exposure control or mA/KV adjustment according to patient size. FINDINGS: No evidence of pulmonary thromboembolism. No acute aortic finding demonstrated. The lungs are clear. No significant pericardial or pleural fluid. No concerning bony finding. IMPRESSION: No evidence of pulmonary thromboembolism. No acute lung findings.
--- NOTE | 2019-03-01 19:57 | EDPHYS ---
Physician Documentation [facility] Name: Najma Wood Age: 38 yrs Sex: Female : 1980 Arrival Date: 03/01/2019 Time: 17:40 Bed 5 Private MD: ED Physician Ray Marquez HPI: 03/01 17:43 This 38 yrs old Female presents to ER via Wheelchair with complaints of jmm Breathing Difficulty. 17:43 The patient has shortness of breath at rest. Onset: The symptoms/episode began/occurred jmm gradually, 3 day(s) ago. Duration: The symptoms are continuous. This is a 38 year old female with a history of asthma that presents to the ED with complaints of rib pain and shortness of breath worsening over the past 3 days. Patient recently discharged for similar episode with no relief at home. . Historical: - Allergies: 18:11 PENICILLINS; mg2 18:11 prednisone; mg2 - Home Meds: 18:11 proair daily [Active]; mg2 - PMHx: 18:11 Asthma; Deaf; mg2 - PSHx: 18:11 None; mg2 - Immunization history:: Flu vaccine status is unknown. - Ebola Screening: : No symptoms or risks identified at this time. - Social history:: Smoking status: unknown. ROS: 17:43 Constitutional: Negative for fever, chills, and weight loss. jmm 17:43 Cardiovascular: Positive for chest pain, with cough. 17:43 Respiratory: Positive for shortness of breath, wheezing. 17:43 All other systems are negative. Exam: 17:43 Head/Face: atraumatic. Eyes: EOMI, no conjunctival erythema appreciated ENT: Moist jmm Mucus Membranes Neck: Trachea midline, Supple Chest/axilla: Normal chest wall appearance and motion. 17:43 Abdomen/GI: Non distended, soft Back: Normal ROM Skin: General appearance color normal MS/ Extremity: Moves all extremities, no obvious deformities appreciated, no edema noted to the lower extremities Neuro: Awake and alert, normal gait Psych: Behavior is normal, Mood is normal, Patient is cooperative and pleasant 17:43 Constitutional: The patient appears alert, awake, anxious, uncomfortable. 17:43 Cardiovascular: Rate: tachycardic, Rhythm: regular. 17:43 Respiratory: mild respiratory distress is noted, Respirations: labored breathing, that is mild, Breath sounds: wheezing: that is moderate, is heard diffusely. Vital Signs: 18:09 Pulse 122; Resp 38; Temp 98.7; Pulse Ox 87% on R/A; mg2 19:04 BP 155 / 82; mg2 19:20 BP 128 / 84; Pulse 115; Resp 24 S; Pulse Ox 86% on R/A; ak1 20:19 BP 119 / 56; Pulse 104; Resp 22; Temp 98.7; Pulse Ox 93% on 2 lpm NC; ak1 MDM: 17:43 Patient medically screened. yanet 19:53 Data reviewed: vital signs, nurses notes, lab test result(s), radiologic studies, CT [facility] scan. ED course: Increased breath sounds on reevaluation. Patient appears more comfortable. O2 Sat still low. Will admit for rebound hypoxia. I discussed the patient with Dr. De Guzman whom accepted the patient. . 03/01 17:51 Order name: CBC with Diff; Complete Time: 18:24 [facility] 03/01 17:51 Order name: CMP; Complete Time: 18:34 [facility] 03/01 17:51 Order name: Troponin (emerg Dept Use Only); Complete Time: 18:34 [facility] 03/01 17:51 Order name: CPK; Complete Time: 18:34 [facility] 03/01 17:51 Order name: PT-INR; Complete Time: 18:24 [facility] 03/01 18:44 Order name: Urine Dipstick--Ancillary (enter results); Complete Time: 18:49 hb 03/01 17:51 Order name: CT Chest For PE Angio; Complete Time: 19:09 [facility] 03/01 18:44 Order name: Urine --Ancillary (enter results); Complete Time: 18:49 hb 03/01 19:45 Order name: ABG; Complete Time: 21:06 [facility] 03/01 19:52 Order name: Flu; Complete Time: 20:39 fc 03/01 17:45 Order name: Saline Lock; Complete Time: 18:06 [facility] 03/01 17:51 Order name: Saline Lock; Complete Time: 19:40 [facility] 03/01 17:51 Order name: EKG - Nurse/Tech; Complete Time: 19:41 jm Administered Medications: 18:06 Not Given (Patient Refused): predniSONE 60 mg PO once mg2 18:06 Drug: DuoNeb (3:1) (2.5 mg - 0.5 mg) 3 ml Route: Nebulizer; mg2 20:37 Follow up: Response: No adverse reaction ak1 18:06 Drug: Magnesium Sulfate 1 grams Route: IVPB; Infused Over: 1 hrs; Site: left mg2 antecubital; 20:00 Follow up: IV Status: Completed infusion ak1 18:07 Drug: SOLU-Medrol 125 mg Route: IVP; Site: left antecubital; mg2 19:58 Follow up: Response: No adverse reaction ak1 19:58 Drug: Decadron - Dexamethasone 10 mg Route: IVP; Site: left antecubital; ak1 19:59 Follow up: Response: No adverse reaction ak1 19:58 Drug: Tylenol 1000 mg Route: PO; ak1 19:59 Follow up: Response: No adverse reaction ak1 20:19 Drug: Magnesium Sulfate 1 grams Route: IVPB; Infused Over: 1 hrs; Site: left lp1 antecubital; 20:45 Not Given (Patient Refused): Tamiflu 75 mg PO once ak1 Disposition: 03/02 08:02 Co-signature as Attending Physician, Ray Marquez MD I agree with the assessment and yanet plan of care. Disposition: 03/01/19 19:56 Hospitalization ordered by Carla De Guzman for Observation. Preliminary diagnosis is Unspecified asthma with (acute) exacerbation. - Bed requested for Telemetry/MedSurg (observation). - Status is Observation. ak1 - Condition is Stable. - Problem is an acute exacerbation. - Symptoms are unchanged. UTI on Admission? No Signatures: Dispatcher [employer] EDRay Sheets MD MD cha Mickail, Joel, PA PA [facility] Beverley Gordillo RN RN lp1 Traci Gaspar RN RN ak1 Sabrina Garcia RN RN cg Shawn Hamilton RN RN mg2 Corrections: (The following items were deleted from the chart) 03/01 20:13 19:56 Hospitalization Ordered by Carla De Guzman MD for Observation. Preliminary cg diagnosis is Unspecified asthma with (acute) exacerbation. Bed requested for Telemetry/MedSurg (observation). Status is Observation. Condition is Stable. Problem is an acute exacerbation. Symptoms are unchanged. UTI on Admission? No. fredrick 21:12 20:13 03/01/2019 19:56 Hospitalization Ordered by Carla De Guzman MD for Observation. ak1 Preliminary diagnosis is Unspecified asthma with (acute) exacerbation. Bed requested for Telemetry/MedSurg (observation). Status is Observation. Condition is Stable. Problem is an acute exacerbation. Symptoms are unchanged. UTI on Admission? No. cg
--- NOTE | 2019-03-01 19:57 | ER ---
Nurse's Notes [facility] Name: Najma Wood Age: 38 yrs Sex: Female : 1980 Arrival Date: 03/01/2019 Time: 17:40 Bed 5 Private MD: Diagnosis: Unspecified asthma with (acute) exacerbation Presentation: 03/01 18:07 Presenting complaint: Patient states: patient is deaf and mute and is here because of mg2 difficulty breathing most likely asthma on exacerbation. Transition of care: patient was not received from another setting of care. Onset of symptoms was March 01, 2019. Risk Assessment: Do you want to hurt yourself or someone else? Patient reports no desire to harm self or others. Initial Sepsis Screen: Does the patient meet any 2 criteria? No. Patient's initial sepsis screen is negative. Does the patient have a suspected source of infection? No. Patient's initial sepsis screen is negative. Care prior to arrival: None. 18:07 Method Of Arrival: Wheelchair mg2 18:07 Acuity: SHILPA 2 mg2 Triage Assessment: 18:11 General: Appears distressed, uncomfortable, Behavior is anxious. Pain: Denies pain. mg2 EENT: No deficits noted. Neuro: Level of Consciousness is awake, alert, obeys commands, Oriented to person, place, time, situation. Cardiovascular: Capillary refill < 3 seconds Patient's skin is warm and dry. Respiratory: Reports shortness of breath at rest Airway is patent Respiratory effort is even, unlabored, Respiratory pattern is regular, symmetrical, Onset: The symptoms/episode began/occurred today, the patient has severe shortness of breath. GI: No signs and/or symptoms were reported involving the gastrointestinal system. : No signs and/or symptoms were reported regarding the genitourinary system. Derm: Skin is intact, is healthy with good turgor, Skin is pink, warm \T\ dry. normal. Musculoskeletal: Circulation, motion, and sensation intact. Capillary refill < 3 seconds. Historical: - Allergies: 18:11 PENICILLINS; mg2 18:11 prednisone; mg2 - Home Meds: 18:11 proair daily [Active]; mg2 - PMHx: 18:11 Asthma; Deaf; mg2 - PSHx: 18:11 None; mg2 - Immunization history:: Flu vaccine status is unknown. - Ebola Screening: : No symptoms or risks identified at this time. - Social history:: Smoking status: unknown. Screenin:12 Abuse screen: Denies threats or abuse. Denies injuries from another. Nutritional mg2 screening: No deficits noted. Tuberculosis screening: No symptoms or risk factors identified. Fall Risk IV access (20 points). Assessment: 18:13 Reassessment: see triage assessment. mg2 19:04 Reassessment: patient sent to ct scan. mg2 19:21 Cardiovascular: Rhythm is sinus tachycardia. ak1 19:34 Reassessment: pt placed on 2L NC oxygen increased to 92%. pt and family informed of ak1 need to stay as inpatient. 20:20 Respiratory: Airway is patent Breath sounds with wheezes bilaterally. ak1 20:46 Reassessment: pt refused tamiflu stating it makes her vomit. ak1 Vital Signs: 18:09 Pulse 122; Resp 38; Temp 98.7; Pulse Ox 87% on R/A; mg2 19:04 BP 155 / 82; mg2 19:20 BP 128 / 84; Pulse 115; Resp 24 S; Pulse Ox 86% on R/A; ak1 20:19 BP 119 / 56; Pulse 104; Resp 22; Temp 98.7; Pulse Ox 93% on 2 lpm NC; ak1 ED Course: 17:40 Patient arrived in ED. as 17:42 Abhilash Chang PA is PHCP. [facility] 17:42 Ray Marquez MD is Attending Physician. [facility] 18:05 Shawn Hamilton, RN is Primary Nurse. mg2 18:09 Triage completed. mg2 18:12 No provider procedures requiring assistance completed. Inserted saline lock: 20 gauge mg2 in left antecubital area, using aseptic technique. Blood collected. 18:13 Patient has correct armband on for positive identification. Pulse ox on. NIBP on. Door mg2 closed. Warm blanket given. 18:13 Arm band placed on. mg2 18:20 Radiology exam delayed due to patient receiving breathing treatment at this time. mw3 18:[address] mw3 19:00 CT completed. Patient tolerated procedure well. Patient moved back from CT. mw3 19:02 CT Chest For PE Angio In Process Unspecified. EDMS 19:27 EKG done, by ED staff, reviewed by Abhilash CAMARILLO. ag4 19:55 Carla De Guzman MD is Hospitalizing Provider. [facility] 20:23 Patient admitted, IV remains in place. ak1 Administered Medications: 18:06 Not Given (Patient Refused): predniSONE 60 mg PO once mg2 18:06 Drug: DuoNeb (3:1) (2.5 mg - 0.5 mg) 3 ml Route: Nebulizer; mg2 20:37 Follow up: Response: No adverse reaction ak1 18:06 Drug: Magnesium Sulfate 1 grams Route: IVPB; Infused Over: 1 hrs; Site: left mg2 antecubital; 20:00 Follow up: IV Status: Completed infusion ak1 18:07 Drug: SOLU-Medrol 125 mg Route: IVP; Site: left antecubital; mg2 19:58 Follow up: Response: No adverse reaction ak1 19:58 Drug: Decadron - Dexamethasone 10 mg Route: IVP; Site: left antecubital; ak1 19:59 Follow up: Response: No adverse reaction ak1 19:58 Drug: Tylenol 1000 mg Route: PO; ak1 19:59 Follow up: Response: No adverse reaction ak1 20:19 Drug: Magnesium Sulfate 1 grams Route: IVPB; Infused Over: 1 hrs; Site: left lp1 antecubital; 20:45 Not Given (Patient Refused): Tamiflu 75 mg PO once ak1 Outcome: 19:56 Decision to Hospitalize by Provider. [facility] 20:24 Condition: stable ak1 20:24 Instructed on the need for admit. 20:35 Admitted to Med/surg accompanied by tech, via wheelchair, room 410, with chart, Other ak1 2L NC and mask due to flu Report called to Barbara 21:12 Patient left the ED. ak1 Signatures: Dispatcher [employer] EDMS Abhilash Chang PA PA jmm Martinez, Amelia as Pena, Laura RN RN lp1 Traci Gaspar RN RN ak1 Shawn Hamilton RN RN mg2 Starla Miles mw3 Waylon Garcia ag4 Corrections: (The following items were deleted from the chart) 18:32 18:31 Radiology exam delayed due to patient receiving breathing treatment at this time. mw3 mw3
[2019-03-01] MEDS ORDERED: ACETAMINOPHEN 500 MG TAB ONE (20:00)
[2019-03-01] MEDS ORDERED: DEXAMETHASONE 10 MG/ML VIAL ONE (20:00)
--- NOTE | 2019-03-01 20:07 | P.HP ---
Certification for Inpatient Patient admitted to: Observation With expected LOS: <2 Midnights Practitioner: I am a practitioner with admitting privileges, knowledge of patient current condition, hospital course, and medical plan of care. Services: Services provided to patient in accordance with Admission requirements found in Title 42 Section 412.3 of the Code of Federal Regulations Patient History Date of Service: 03/01/19 Reason for admission: asthma exacerbation History of Present Illness: Ms Wood is a 38 years old woman with history of asthma, she is deaf and mute which make difficult to obtain detailed history of her symptoms, however she communicate very well writing in a peace of paper. She start about 3 days ago with progressive SOB. She came to ER, was diagnosed with asthma exacerbation, and was discharged home with inhaled steroids and inhaled JERRI. She also received Z-Pack prescription. Today, the patient came back to ED because her SOB got worse. She denied fever or chills, but has had headache. At arrival, she was afebrile, tachycardic 122 bpm, O2 sat 56% on RA. After a round of breathing treatment and IV steroids, she improved her SOB and O2 Sat went up to 100% on RA. However, shortly, she become dyspneic again, O2 sat decreased to 87 % on RA, improving with O2 support 2 L by NC up to 91%. Allergies No Known Allergies Allergy (Unverified 09/05/16 13:26) Home medications list reviewed: Yes - Past Medical/Surgical History -: moderate persistent asthma -: deaf -: mute Past Surgical History: Reviewed- Non-Contributory - Family History Family History: Reviewed- Non-Contributory - Social History Smoking Status: Never smoker CD- Drugs: No Place of Residence: Home Review of Systems 10-point ROS is otherwise unremarkable Physical Examination - Physical Exam General: Alert, In no apparent distress HEENT: Atraumatic, PERRLA, Mucous membr. moist/pink, EOMI, Sclerae nonicteric Neck: Supple, 2+ carotid pulse no bruit, No LAD, Without JVD or thyroid abnormality Respiratory: Diminished, Expiratory wheezes, Rhonchi/gurgles Cardiovascular: Regular rate/rhythm, Normal S1 S2 Gastrointestinal: Normal bowel sounds, No tenderness Musculoskeletal: No tenderness Integumentary: No rashes Neurological: Normal speech, Normal strength at 5/5 x4 extr, Normal tone, Normal affect Lymphatics: No axilla or inguinal lymphadenopathy - Studies Laboratory Data (last 24 hrs) 03/01/19 18:00: PT 12.5, INR 1.06 03/01/19 18:00: Sodium 140, Potassium 3.5, BUN 7, Creatinine 0.76, Glucose 90, Total Bilirubin 0.6, AST 21, ALT 23, Alkaline Phosphatase 86 03/01/19 18:00: WBC 5.1 D, Hgb 14.7, Hct 42.9, Plt Count 195 D Assessment and Plan - Problems (Diagnosis) (1) Moderate acute exacerbation of asthma Current Visit: Yes Status: Acute (2) Acute respiratory failure Current Visit: Yes Status: Acute Qualifiers: Respiratory failure complication: hypoxia Qualified Code(s): J96.01 - Acute respiratory failure with hypoxia - Plan The patient will be admitted to the hospital due to acute moderate persistent asthma exacerbation. Lab work is unremarkable, CTA chest showed no PE or infiltrate. Pending influenza screening. Will continue with IV steroids and breathing treatments. Consult Dr Virgen of treatment optimization. - Advance Directives Does patient have a Living Will: No Does patient have a Durable POA for Healthcare: No - Code Status/Comfort Care Code Status Assessed: Yes Code Status: Full Code
[2019-03-01 20:51] LABS: Arterial Blood Carboxyhemoglob 0.9 % (0-1.5); Blood Gas Oxyhemoglobin 87.4 % (94-97)
[2019-03-01] MEDS ORDERED: OSELTAMIVIR 75 MG CAP ONE (20:55)
[2019-03-01] MEDS ORDERED: ONDANSETRON 4 MG/2 ML VIAL IV PRN (22:21)
[2019-03-01] MEDS: NA CHLORIDE 0.9% 1,000 ML IV SCH (22:56)
[2019-03-01] MEDS: IPRATROPIUM BROM 0.5MG/2.5ML NEB PRN (23:08)
[2019-03-01] MEDS: ALBUTEROL 2.5 MG/3 ML NEB SOL NEB PRN (23:08)
[2019-03-01] MEDS ORDERED: POTASSIUM CL SA 10 MEQ TAB PO ONE (23:30)
[2019-03-02] MEDS: ACETAMINOPHEN 500 MG TAB PO PRN (00:12)
[2019-03-02] MEDS: METHYLPREDNISOLONE 40 MG INJ IV SCH ×3 (00:22→17:32)
[2019-03-02 00:23] VITALS: BMI 29.2
[2019-03-02] MEDS: ALBUTEROL 2.5 MG/3 ML NEB SOL NEB PRN (02:30)
[2019-03-02] MEDS: IPRATROPIUM BROM 0.5MG/2.5ML NEB PRN (02:30)
[2019-03-02 03:40] LABS: Urine Appearance CLEAR; Urine Bilirubin NEGATIVE (NEG); Urine Blood TRACE (NEG); Urine Color YELLOW; Urine Glucose NEGATIVE (NEG); Urine Protein NEGATIVE (NEG); Urine Specific Gravity >=1.030 (1.005-1.030)
[2019-03-02 03:42] LABS: Urine Microscopic Reflex ORDER UMIC
[2019-03-02 05:41] LABS: Urine Bacteria <20 /HPF (<20); Urine Culture Reflex Order NOT NEEDED; Urine RBC <5 /HPF (NONE SEEN)
[2019-03-02 06:01] LABS: Absolute Lymphocytes (CBC) 0.3 K/uL (0.7-4.9); Absolute Neutrophil 2.1 K/uL (1.8-8.0); Basophils % 0.1 % (0-1.3); Eosinophils % 0.1 % (0-4.4); Hematocrit 38.2 % (36.0-45.0); Lymphocytes % 11.4 % (15.3-44.8); MPV 8.8 fL (7.6-11.3); Monocytes % 1.8 % (3.3-12.3); RBC Red Blood Cell Count 4.27 M/uL (3.86-4.86)
[2019-03-02 06:23] LABS: BUN Blood Urea Nitrogen 7 mg/dL (7-18); Bicarbonate 24 mmol/L (21-32); Glucose Level 127 mg/dL (74-106); Magnesium 2.6 mg/dL (1.8-2.4); Potassium 3.9 mmol/L (3.5-5.1); Sodium Level 143 mmol/L (136-145)
[2019-03-02 07:33] LABS: Blood Morphology Comment NOT SEEN (NOT SEEN); Platelet Estimate ADEQ; Urine White Blood Cell Casts OK
[2019-03-02] MEDS: OSELTAMIVIR 75 MG CAP PO SCH ×3 (08:20→21:32)
[2019-03-02] MEDS: ENOXAPARIN 40 MG/0.4 ML SQ SCH (08:23)
[2019-03-02] MEDS: NA CHLORIDE 0.9% 1,000 ML IV SCH (08:31)
[2019-03-02] MEDS ORDERED: POTASSIUM CL SA 10 MEQ TAB PO ONE (09:00)
[2019-03-02] MEDS ORDERED: LORazepam 2 MG/ML VIAL IV ONE (10:50)
[2019-03-02] MEDS: IPRATROPIUM BROM 0.5MG/2.5ML NEB SCH ×3 (11:30→20:00)
[2019-03-02] MEDS: ARFORMOTEROL TARTRATE 15 MCG/2 ML VIAL.NEB NEB SCH ×2 (11:30→20:00)
[2019-03-02] MEDS ORDERED: LEVALBUTEROL 1.25 MG/3 ML NEB ONE (11:48)
[2019-03-02] MEDS: LEVALBUTEROL 1.25 MG/3 ML NEB NEB SCH ×3 (11:50→20:00)
--- NOTE | 2019-03-02 11:59 | P.CNS ---
Date of Consult: 03/02/19 Chief Complaint: Shortness of breath History of Present Illness: Patient is 38 years of age hard of hearing admitted with worsening shortness of breath for the past 4 days she has a history of asthma. Came in very short of breath tachycardic low sats and was transferred here to the ICU No evidence of sepsis patient was hypercapnic hypoxic there is no evidence of thromboembolism Allergies Penicillins Allergy (Verified 03/02/19 00:09) Hives/Rash prednisone Allergy (Verified 03/02/19 00:09) Hives/Rash Home Medications: Albuterol Sulfate [Proair Hfa] 2 puff IH Q6H PRN 03/02/19 - Past Medical/Surgical History Diabetic: No -: moderate persistent asthma -: deaf -: mute - Family History Mother Medical History: Lung disease, Other (see notes) Notes: asthma - Social History Smoking Status: Unknown if ever smoked Alcohol use: No CD- Drugs: No Caffeine use: No Place of Residence: Home Review of Systems Respiratory: Shortness of Breath Physical Examination Temp Pulse Resp BP Pulse Ox 98.2 F 134 H 25 H 139/89 99 03/02/19 08:00 03/02/19 11:20 03/02/19 11:20 03/02/19 11:20 03/02/19 11:20 General: Alert, Moderate distress Respiratory: Expiratory wheezes Cardiovascular: No edema, Regular rate/rhythm, Normal S1 S2 Laboratory Data (last 24 hrs) 03/02/19 05:46: Sodium 143, Potassium 3.9, BUN 7, Creatinine 0.61, Glucose 127 H , Magnesium 2.6 H 03/02/19 05:46: WBC 2.5 L D, Hgb 13.2, Hct 38.2, Plt Count 176 03/01/19 18:00: PT 12.5, INR 1.06 03/01/19 18:00: Sodium 140, Potassium 3.5, BUN 7, Creatinine 0.76, Glucose 90, Total Bilirubin 0.6, AST 21, ALT 23, Alkaline Phosphatase 86 03/01/19 18:00: WBC 5.1 D, Hgb 14.7, Hct 42.9, Plt Count 195 D - Problems (1) Asthma exacerbation Current Visit: Yes Status: Acute Plan: Patient is 38 years of age with a history of asthma admitted with an exacerbation currently [id number] and is mute for hypoxic hypercapnic no evidence of thromboembolism labs are otherwise unremarkable continue with steroids bronchodilators surely a long-acting bronchodilator with inhaled steroid as an outpatient influenza B positive Qualifiers: Asthma severity: severe
[2019-03-02] MEDS ORDERED: IPRATROPIUM BROM 0.5MG/2.5ML NEB SCH (14:00)
--- NOTE | 2019-03-02 14:33 | P.PN ---
Subjective Date of Service: 03/02/19 Chief Complaint: Shortness of breath Pt seen and examined at bedside this AM. Chart Reviewed. Case DW with Pulmonology, family and RN at bedside. C.o of SOB, Chest Tigthness and anxiety this AM. Denies CP, Fever or chills. Review of Systems 10-point ROS is otherwise unremarkable Physical Examination - Vital Signs Temperature: 98.2 F Blood Pressure: 135/89 Pulse: 106 Respirations: 25 Pulse Ox (%): 97 - Physical Exam General: Alert, Acute distress HEENT: Atraumatic, PERRLA, EOMI Neck: Supple, JVD not distended Respiratory: Normal air movement, Diminished (BL Lung Bases ), Expiratory wheezes, Inspiratory wheezes, Other (Audible Wheezing as well ) Cardiovascular: Regular rate/rhythm, Normal S1 S2 Gastrointestinal: Normal bowel sounds, No tenderness Musculoskeletal: No tenderness Integumentary: No rashes Neurological: Normal tone, Normal affect, Abnormal speech Lymphatics: No axilla or inguinal lymphadenopathy - Studies Laboratory Data (last 24 hrs) 03/02/19 05:46: Sodium 143, Potassium 3.9, BUN 7, Creatinine 0.61, Glucose 127 H , Magnesium 2.6 H 03/02/19 05:46: WBC 2.5 L D, Hgb 13.2, Hct 38.2, Plt Count 176 03/01/19 18:00: PT 12.5, INR 1.06 03/01/19 18:00: Sodium 140, Potassium 3.5, BUN 7, Creatinine 0.76, Glucose 90, Total Bilirubin 0.6, AST 21, ALT 23, Alkaline Phosphatase 86 03/01/19 18:00: WBC 5.1 D, Hgb 14.7, Hct 42.9, Plt Count 195 D Microbiology Data (last 24 hrs): 03/02/19 07:36 Sputum Gram Stain - Final 03/01/19 19:55 Nasopharnyx Influenza Type A Antigen Screen - Final 03/01/19 19:55 Nasopharnyx Influenza Type B Antigen Screen - Final Medications List Reviewed: Yes Assessment And Plan - Current Problems (Diagnosis) (1) Acute respiratory failure Current Visit: Yes Status: Acute Plan: Acute Respiratory Failure 2.2 to Asthma exacerbation 2.2 to Influenza B -With Acute worsening of symptoms will transfer patient to ICU -BIPAP for now, Wean as tolerated -discussed about possible Intubation. Pt agreeable to it. -Duonebs, Steroids and Close monitoring -Pulmonology consulted. Qualifiers: Respiratory failure complication: hypoxia Qualified Code(s): J96.01 - Acute respiratory failure with hypoxia (2) Influenza B Current Visit: Yes Status: Acute Plan: Influenza B + -Pt refusing Tamiflu for potential Allergy (3) Asthma exacerbation Current Visit: Yes Status: Acute Plan: Severe Asthma with Acute Exacerbation -Started on Duonebs, BIPAP and steroids for now Qualifiers: Asthma severity: severe - Plan Transfer to the ICU for further care due to Acute worsening of the symptoms. Place on BIPAP for now and monitor closely Discharge Plan: Home Plan to discharge in: Greater than 2 days - Code Status/Comfort Care Code Status Assessed: Yes Code Status: Full Code Critical Care: Yes Time Spent Managing PTS Care (In Minutes): 45
[2019-03-02 16:54] LABS: Arterial Blood Carboxyhemoglob 0.9 % (0-1.5); Blood Gas Oxyhemoglobin 97.5 % (94-97)
[2019-03-03] MEDS: METHYLPREDNISOLONE 40 MG INJ IV SCH ×3 (01:27→18:38)
[2019-03-03] MEDS: LEVALBUTEROL 1.25 MG/3 ML NEB NEB SCH ×3 (03:29→08:00)
[2019-03-03] MEDS: IPRATROPIUM BROM 0.5MG/2.5ML NEB SCH ×5 (03:29→20:00)
[2019-03-03 05:35] LABS: Absolute Lymphocytes (CBC) 0.4 K/uL (0.7-4.9); Absolute Monocytes 0.2 K/uL (0.1-1.3); Absolute Neutrophil 6.2 K/uL (1.8-8.0); Basophils % 0.2 % (0-1.3); Hematocrit 39.1 % (36.0-45.0); Lymphocytes % 5.4 % (15.3-44.8); MPV 8.8 fL (7.6-11.3); Monocytes % 3.4 % (3.3-12.3); RBC Red Blood Cell Count 4.37 M/uL (3.86-4.86)
[2019-03-03 05:53] LABS: ALT/SGPT 22 U/L (12-78); AST/SGOT 14 U/L (15-37); Albumin 3.7 g/dL (3.4-5.0); Alkaline Phosphatase 74 U/L (45-117); BUN Blood Urea Nitrogen 14 mg/dL (7-18); Bicarbonate 26 mmol/L (21-32); Bilirubin Total 0.6 mg/dL (0.2-1.0); Glucose Level 115 mg/dL (74-106); Potassium 4.3 mmol/L (3.5-5.1); Protein, Total 7.5 g/dL (6.4-8.2); Sodium Level 140 mmol/L (136-145)
[2019-03-03 06:45] LABS: Blood Morphology Comment NOT SEEN (NOT SEEN); Platelet Estimate ADEQ; Urine White Blood Cell Casts OK
[2019-03-03] MEDS: ARFORMOTEROL TARTRATE 15 MCG/2 ML VIAL.NEB NEB SCH ×2 (08:00→20:00)
[2019-03-03] MEDS ORDERED: LEVALBUTEROL 1.25 MG/3 ML NEB NEB PRN (08:19)
--- NOTE | 2019-03-03 08:21 | P.PN ---
Subjective Date of Service: 03/03/19 Chief Complaint: Asthma exacerbation Subjective: Improving (Patient is improving doing well she is more comfortable audible wheezing did not require BiPAP) Review of Systems is unable to be obtained Physical Examination - Vital Signs Temperature: 98.5 F Blood Pressure: 94/65 Pulse: 79 Respirations: 26 Pulse Ox (%): 96 - Physical Exam General: Alert, Cooperative Respiratory: Expiratory wheezes Cardiovascular: No edema, Regular rate/rhythm - Studies Microbiology Data (last 24 hrs): 03/02/19 07:36 Sputum Gram Stain - Final Medications List Reviewed: Yes Assessment & Plan - Problems (Diagnosis) (1) Asthma exacerbation Current Visit: Yes Status: Acute Plan: Patient admitted with asthma exacerbation transfer to the ICU doing much better bronchodilators frequency changed and be transferred to the labs reviewed once for to the floor with continuous pulse ox change booth attendant to p.o. prednisone tomorrow she will need a long-acting bronchodilator with an inhaled steroid at home doubt that this is related to exposure to mold Qualifiers: Asthma severity: severe
[2019-03-03] MEDS: ENOXAPARIN 40 MG/0.4 ML SQ SCH (08:54)
[2019-03-03] MEDS: ACETAMINOPHEN 500 MG TAB PO PRN (08:54)
[2019-03-03] MEDS: OSELTAMIVIR 75 MG CAP PO SCH ×2 (08:55→21:00)
--- NOTE | 2019-03-03 11:35 | EKG ---
Test Date: 2019-03-01 Test Time: 19:21:10 Wheel Alignment Mechanic: AG3 MEASUREMENT RESULTS: Intervals: Rate: 115 LA: 118 QRSD: 84 QT: 336 QTc: 464 Gerton: P: 69 LA: 118 QRS: 72 T: 48 INTERPRETIVE STATEMENTS: Sinus tachycardia Otherwise normal ECG Compared to ECG 05/20/2017 08:38:19 Sinus rhythm no longer present Sinus arrhythmia no longer present Electronically Signed On 03-02-19 10:50:37 CDT by Levar Landeros
--- NOTE | 2019-03-03 15:18 | P.PN ---
Subjective Date of Service: 03/03/19 Chief Complaint: Asthma exacerbation Pt seen and examined at bedside this AM. Chart Reviewed. Case DW with Pulmonology, family and RN at bedside. Significant improvement over all the symptoms since yesterday. Weaned off the BIPAP. Denies SOB, CP or cough this AM Review of Systems 10-point ROS is otherwise unremarkable Physical Examination - Vital Signs Temperature: 98.5 F Blood Pressure: 104/77 Pulse: 77 Respirations: 21 Pulse Ox (%): 98 - Physical Exam General: Alert, Mild distress Respiratory: Normal air movement, Expiratory wheezes, Inspiratory wheezes Cardiovascular: Regular rate/rhythm, Normal S1 S2 Gastrointestinal: Normal bowel sounds, No tenderness Musculoskeletal: No tenderness Integumentary: No rashes Neurological: Normal tone, Normal affect Lymphatics: No axilla or inguinal lymphadenopathy - Studies Microbiology Data (last 24 hrs): 03/02/19 07:36 Sputum Gram Stain - Final Medications List Reviewed: Yes Assessment And Plan - Current Problems (Diagnosis) (1) Acute respiratory failure Current Visit: Yes Status: Acute Plan: Acute Respiratory Failure 2.2 to Asthma exacerbation 2.2 to Influenza B -Now Improved Markedly. Transfer to Floor today -Weaned to NC from BIPAP. Saturating well -Duonebs, Steroids and Close monitoring -Pulmonology consulted. Qualifiers: Respiratory failure complication: hypoxia Qualified Code(s): J96.01 - Acute respiratory failure with hypoxia (2) Influenza B Current Visit: Yes Status: Acute Plan: Influenza B + -Pt refusing Tamiflu for potential Allergy (3) Asthma exacerbation Current Visit: Yes Status: Acute Plan: Severe Asthma with Acute Exacerbation -Continue on Duonebs, NC now and steroids Qualifiers: Asthma severity: severe - Plan Transfer to the floor now. Pt improved markedly today. Weaned off the BIPAP. Now on NC. Will continue with Duonebs. Discharge Plan: Home Plan to discharge in: 48 Hours - Code Status/Comfort Care Code Status Assessed: Yes Critical Care: Yes Time Spent Managing PTS Care (In Minutes): 45
[2019-03-04] MEDS: IPRATROPIUM BROM 0.5MG/2.5ML NEB SCH ×4 (02:00→20:00)
[2019-03-04] MEDS: METHYLPREDNISOLONE 40 MG INJ IV SCH ×3 (03:00→16:59)
[2019-03-04 05:29] LABS: Absolute Lymphocytes (CBC) 0.9 K/uL (0.7-4.9); Absolute Monocytes 0.3 K/uL (0.1-1.3); Absolute Neutrophil 5.3 K/uL (1.8-8.0); Basophils % 0.1 % (0-1.3); Hematocrit 42.8 % (36.0-45.0); Lymphocytes % 13.8 % (15.3-44.8); MPV 9.1 fL (7.6-11.3); Monocytes % 5.1 % (3.3-12.3); RBC Red Blood Cell Count 4.75 M/uL (3.86-4.86)
[2019-03-04 05:36] LABS: Albumin 3.7 g/dL (3.4-5.0); Bilirubin Total 0.9 mg/dL (0.2-1.0); Protein, Total 7.5 g/dL (6.4-8.2)
[2019-03-04] MEDS: ARFORMOTEROL TARTRATE 15 MCG/2 ML VIAL.NEB NEB SCH ×2 (07:34→20:00)
[2019-03-04] MEDS: ENOXAPARIN 40 MG/0.4 ML SQ SCH (08:26)
[2019-03-04] MEDS: OSELTAMIVIR 75 MG CAP PO SCH ×2 (08:42→21:00)
--- NOTE | 2019-03-04 14:37 | P.PN ---
Subjective Date of Service: 03/04/19 Chief Complaint: Asthma exacerbation Pt seen and examined at bedside this AM. Chart Reviewed. Case DW with Pulmonology, family and RN at bedside. Significant improvement over all. Denies SOB, CP or cough this AM Review of Systems 10-point ROS is otherwise unremarkable Physical Examination - Vital Signs Temperature: 98.0 F Blood Pressure: 111/81 Pulse: 83 Respirations: 19 Pulse Ox (%): 94 - Physical Exam General: Alert, In no apparent distress HEENT: Atraumatic, PERRLA, EOMI Neck: Supple, JVD not distended Respiratory: Normal air movement, Expiratory wheezes, Inspiratory wheezes Cardiovascular: Regular rate/rhythm, Normal S1 S2 Gastrointestinal: Normal bowel sounds, No tenderness Musculoskeletal: No tenderness Integumentary: No rashes Neurological: Normal speech, Normal tone, Normal affect Lymphatics: No axilla or inguinal lymphadenopathy - Studies Microbiology Data (last 24 hrs): 03/02/19 07:36 Sputum Gram Stain - Final 03/02/19 07:36 Sputum Culture & Sensitivity - Final Medications List Reviewed: Yes Assessment And Plan - Current Problems (Diagnosis) (1) Acute respiratory failure Current Visit: Yes Status: Acute Plan: Acute Respiratory Failure 2.2 to Asthma exacerbation 2.2 to Influenza B -Now Improved Markedly. -Weaned to NC. Saturating well -Duonebs, Steroids -Pulmonology consulted. Qualifiers: Respiratory failure complication: hypoxia Qualified Code(s): J96.01 - Acute respiratory failure with hypoxia (2) Influenza B Current Visit: Yes Status: Acute Plan: Influenza B + -Pt refusing Tamiflu for potential Allergy (3) Asthma exacerbation Current Visit: Yes Status: Acute Plan: Severe Asthma with Acute Exacerbation -Continue on Duonebs, NC now and steroids Qualifiers: Asthma severity: severe - Plan pending floor bed for transfer. Now on NC. continue with Duonebs, steriods. Possible DC in next 24 to 48 hrs Discharge Plan: Home Plan to discharge in: 48 Hours - Code Status/Comfort Care Code Status Assessed: Yes Critical Care: No
[2019-03-04] MEDS: ACETAMINOPHEN 500 MG TAB PO PRN (22:48)
[2019-03-05] MEDS: METHYLPREDNISOLONE 40 MG INJ IV SCH (01:10)
[2019-03-05] MEDS: IPRATROPIUM BROM 0.5MG/2.5ML NEB SCH ×4 (02:00→20:00)
[2019-03-05 04:15] LABS: Absolute Lymphocytes (CBC) 0.7 K/uL (0.7-4.9); Absolute Monocytes 0.3 K/uL (0.1-1.3); Absolute Neutrophil 4.8 K/uL (1.8-8.0); Basophils % 0.1 % (0-1.3); Lymphocytes % 11.5 % (15.3-44.8); MPV 8.4 fL (7.6-11.3); Monocytes % 5.4 % (3.3-12.3); RBC Red Blood Cell Count 4.75 M/uL (3.86-4.86)
[2019-03-05 04:37] LABS: Albumin 3.8 g/dL (3.4-5.0); Potassium 4.2 mmol/L (3.5-5.1); Protein, Total 7.6 g/dL (6.4-8.2)
--- NOTE | 2019-03-05 08:46 | P.PN ---
Subjective Date of Service: 03/05/19 Chief Complaint: Asthma exacerbation Subjective: Improving (Patient is doing much better still wheezing) Review of Systems Respiratory: Cough, Shortness of Breath Physical Examination - Vital Signs Temperature: 98.0 F Blood Pressure: 121/75 Pulse: 76 Respirations: 19 Pulse Ox (%): 94 - Physical Exam General: Alert, Oriented x3 Respiratory: Clear to auscultation bilaterally Cardiovascular: No edema, Regular rate/rhythm - Studies Microbiology Data (last 24 hrs): 03/02/19 07:36 Sputum Gram Stain - Final 03/02/19 07:36 Sputum Culture & Sensitivity - Final Medications List Reviewed: Yes Assessment & Plan - Problems (Diagnosis) (1) Asthma exacerbation Current Visit: Yes Status: Acute Plan: Patient is 38 years of age admitted with asthma exacerbation doing much better check room air pulse ox plan to discharge on prednisone 20 mg twice a day for 7 days sitter using Advair a Symbicort on maximum dosages use a short-acting bronchodilator on a p.r.n. basis follow up with me in 2 weeks all labs reviewed Qualifiers: Asthma severity: severe
[2019-03-05] MEDS: predniSONE 20 MG TAB PO SCH ×2 (09:00→21:00)
[2019-03-05] MEDS: ENOXAPARIN 40 MG/0.4 ML SQ SCH (09:53)
[2019-03-05] MEDS: ARFORMOTEROL TARTRATE 15 MCG/2 ML VIAL.NEB NEB SCH ×2 (13:30→20:00)
--- NOTE | 2019-03-05 16:19 | P.PN ---
Subjective Date of Service: 03/05/19 Chief Complaint: Asthma exacerbation Pt seen and examined at bedside this AM. Chart Reviewed. Case DW with Pulmonology, family and RN at bedside. Significant improvement. Denies SOB, CP or cough this AM. C/o having panic attacks Review of Systems 10-point ROS is otherwise unremarkable Physical Examination - Vital Signs Temperature: 97.7 F Blood Pressure: 109/70 Pulse: 87 Respirations: 16 Pulse Ox (%): 91 - Physical Exam General: Alert, In no apparent distress HEENT: Atraumatic, PERRLA, EOMI Neck: Supple, JVD not distended Respiratory: Normal air movement, Expiratory wheezes, Inspiratory wheezes Cardiovascular: Regular rate/rhythm, Normal S1 S2 Gastrointestinal: Normal bowel sounds, No tenderness Musculoskeletal: No tenderness Integumentary: No rashes Neurological: Normal speech, Normal tone, Normal affect Lymphatics: No axilla or inguinal lymphadenopathy - Studies Medications List Reviewed: Yes Assessment And Plan - Current Problems (Diagnosis) (1) Acute respiratory failure Current Visit: Yes Status: Acute Plan: Acute Respiratory Failure 2.2 to Asthma exacerbation 2.2 to Influenza B -Now Improved Markedly. -Weaned to NC. Saturating well -Duonebs, Steroids and oxygen. Will wean oxygen as tolerated -Pulmonology consulted. Appreciated Reccs Qualifiers: Respiratory failure complication: hypoxia Qualified Code(s): J96.01 - Acute respiratory failure with hypoxia (2) Influenza B Current Visit: Yes Status: Acute Plan: Influenza B + -Pt refusing Tamiflu for potential Allergy (3) Asthma exacerbation Current Visit: Yes Status: Acute Plan: Severe Asthma with Acute Exacerbation -Continue on Duonebs, NC and steroids Qualifiers: Asthma severity: severe - Plan Pending clinically improvement. Now on NC. continue with Duonebs, steriods. Possible DC in next 24 to 48 hrs Discharge Plan: Home Plan to discharge in: Greater than 2 days - Code Status/Comfort Care Code Status Assessed: Yes Critical Care: No
[2019-03-06] MEDS: IPRATROPIUM BROM 0.5MG/2.5ML NEB SCH ×2 (02:00→07:51)
[2019-03-06] MEDS: ARFORMOTEROL TARTRATE 15 MCG/2 ML VIAL.NEB NEB SCH (07:50)
[2019-03-06] MEDS: predniSONE 20 MG TAB PO SCH ×2 (09:00→09:09)
[2019-03-06] MEDS: ENOXAPARIN 40 MG/0.4 ML SQ SCH (09:09)
[2019-03-06 09:28] VITALS: BP 108/83; TEMP 97.1; O2SAT 93
--- NOTE | 2019-03-06 16:27 | P.DS ---
Admission Date: 03/02/19 Discharge Date: 03/06/19 Disposition: ROUTINE DISCHARGE Discharge Condition: GOOD Reason for Admission: Asthma exacerbation Consultations: Pulmonology - Problems (1) Acute respiratory failure Status: Acute Qualifiers: Respiratory failure complication: hypoxia Qualified Code(s): J96.01 - Acute respiratory failure with hypoxia (2) Influenza B Status: Acute (3) Asthma exacerbation Status: Acute Qualifiers: Asthma severity: severe Brief History of Present Illness: Ms Wood is a 38 years old woman with history of asthma, she is deaf and mute which make difficult to obtain detailed history of her symptoms, however she communicate very well writing in a peace of paper. She start about 3 days ago with progressive SOB. She came to ER, was diagnosed with asthma exacerbation, and was discharged home with inhaled steroids and inhaled JERRI. She also received Z-Pack prescription. Today, the patient came back to ED because her SOB got worse. She denied fever or chills, but has had headache. At arrival, she was afebrile, tachycardic 122 bpm, O2 sat 56% on RA. After a round of breathing treatment and IV steroids, she improved her SOB and O2 Sat went up to 100% on RA. However, shortly, she become dyspneic again, O2 sat decreased to 87 % on RA, improving with O2 support 2 L by NC up to 91%. Hospital Course: Overall during the hospital stay patient in stable Patient initially was admitted to the hospital for asthma exacerbation most likely secondary to influenza B.. Patient refused to take any fluids she stated that she was allergic to Tamiflu as it made her throw up. Patient was started on DuoNeb, steroids, oxygen here in the hospital. Initially patient was admitted to the medical-surgical floor. However was not getting better and was getting more and more dyspneic. Patient was transferred to the ICU and was placed on BiPAP. Patient had marked improvement in her symptoms on BiPAP and was kept on that and weaned off of BiPAP for the next 24 hr. Patient then was transferred back to the floor and did well overall. At that time pulmonology recommended the patient can then be discharged home under stable condition and was asked to continue taking her rescue and maintenance inhaler at patient before the hospitalization did not take any maintenance inhaler or steroids. Patient was told that she has a diagnosis of moderate persistent asthma and does need a maintenance inhaler and can use rescue inhaler when she gets short of breath or wheezing. Patient was also asked to take allergy medication when the weather changes outside. Patient and family both demonstrated understanding and this patient was discharged home under stable condition was given a prescription for Symbicort, steroid, Pro air. Prior authorization was done for Symbicort to be covered by Medicaid. Vital Signs/Physical Exam: Temp Pulse Resp BP Pulse Ox 97.1 F 86 18 108/83 92 03/06/19 08:00 03/06/19 08:00 03/06/19 08:00 03/06/19 08:00 03/06/19 08:00 General: Alert, In no apparent distress HEENT: Atraumatic, PERRLA, EOMI Neck: Supple, JVD not distended Respiratory: Normal air movement, Expiratory wheezes, Inspiratory wheezes Cardiovascular: Regular rate/rhythm, Normal S1 S2 Gastrointestinal: Normal bowel sounds, No tenderness Musculoskeletal: No tenderness Integumentary: No rashes Neurological: Normal speech, Normal tone, Normal affect Lymphatics: No axilla or inguinal lymphadenopathy Laboratory Data at Discharge: WBC 5.8 K/uL (4.3-10.9) 03/05/19 03:45 Hgb 14.3 g/dL (12.0-15.0) 03/05/19 03:45 Hct 43.0 % (36.0-45.0) 03/05/19 03:45 Plt Count 249 K/uL (152-406) 03/05/19 03:45 PT 12.5 SECONDS (9.5-12.5) 03/01/19 18:00 INR 1.06 03/01/19 18:00 Sodium 140 mmol/L (136-145) 03/05/19 03:45 Potassium 4.2 mmol/L (3.5-5.1) 03/05/19 03:45 BUN 22 mg/dL (7-18) H 03/05/19 03:45 Creatinine 0.74 mg/dL (0.55-1.3) 03/05/19 03:45 Glucose 109 mg/dL (74-106) H 03/05/19 03:45 Magnesium 2.6 mg/dL (1.8-2.4) H 03/02/19 05:46 Total Bilirubin 1.0 mg/dL (0.2-1.0) 03/05/19 03:45 AST 60 U/L (15-37) H 03/05/19 03:45 ALT 154 U/L (12-78) H D 03/05/19 03:45 Alkaline Phosphatase 67 U/L (45-117) 03/05/19 03:45 Home Medications: Albuterol Sulfate [Proair Hfa] 2 puff IH Q6H PRN 03/02/19 Budesonide/Formoterol Fumarate [Symbicort 160-4.5 Mcg Inhaler] 2 puff IH BID #1 hfa.aer.ad 03/06/19 Fluticasone/Salmeterol [Advair Hfa 230-21 Mcg Inhaler] 12 gm IH BID #1 aer.w.adap 03/06/19 predniSONE [Prednisone*] 20 mg PO BID #10 tab 03/06/19 New Medications: Budesonide/Formoterol Fumarate [Symbicort 160-4.5 Mcg Inhaler] 2 puff IH BID #1 hfa.aer.ad Fluticasone/Salmeterol [Advair Hfa 230-21 Mcg Inhaler] 12 gm IH BID #1 aer.w.adap predniSONE [Prednisone*] 20 mg PO BID #10 tab Patient Discharge Instructions: Please f.u with PCP and Pulmonology in 1 to 2 week post discharge. New medication. Prednisone 20mg BID for 5 days. Symbicort or Advair (whichever your insurance covers) 2 puff BID for maintence of asthma. Brovana 2puff BID for Maintence of asthma as well. Proair 1 puff every 4 hours as needed for SOB if your maintence inhaler does not help Diet: Regular Activity: Ad sarah Followup: Jaylon Virgen MD [ACTIVE - CAN ADMIT] - 1-2 Weeks (Call to schedule an appointment)
== END 2019-03-06 16:06 | disposition home or self-care (01) | DRG 193 ==
LOC: ER 17:40 → ERHOLD 19:53 → 4TH 20:38 → OBSVTOIN 03-02 11:07 → 3RD-ICU 03-02 11:20 → 4TH 03-04 16:06
PROVIDERS: ADMIT Internal Medicine; ATTEND Family Medicine
PROC: 5A09457 Assistance with Respiratory Ventilation, 24-96 Consecutive Hours, Continuous Positive Airway Pressure (ICD-10-PCS; principal; 2019-03-02)
DX: J10.1 Influenza due to other identified influenza virus with other respiratory manifestations (principal); J96.01 Acute respiratory failure with hypoxia; J45.41 Moderate persistent asthma with (acute) exacerbation; Z88.0 Allergy status to penicillin; H91.3 Deaf nonspeaking, not elsewhere classified
CPT/HCPCS: 36415; 71275; 80048; 80053; 81003; 81015; 81025; 82550; 82805; 83735; 84484; 85025; 85610; 87070; 87205; 87804; 93005; 94640; 94660; 94760; 96365; 96366; 96375; 99285; G0378; J1100; J1650; J2920; J2930; J3475; J7030; J7512; J7605; Q9967

== ENCOUNTER 2019-09-23 16:22 | Emergency (ER) | payer MEDICAID ==
[2019-09-23] MEDS ORDERED: ALBUTEROL 2.5 MG/3 ML NEB SOL ONE (17:30)
--- NOTE | 2019-09-23 17:41 | EDPHYS ---
Physician Documentation [facility] Name: Najma Wood Age: 39 yrs Sex: Female : 1980 Arrival Date: 09/23/2019 Time: 16:26 Bed 24 Private MD: ED Physician Ray Marquez HPI: 09/23 17:38 This 39 yrs old Female presents to ER via Ambulatory with complaints of snw Asthma Exacerbation. 17:38 The patient presents to the emergency department with wheezing, Current therapy: None, snw that began after exposure to smoke, the patient was reported to have audible wheezing, chest congestion, non-productive cough, trouble breathing. Onset: The symptoms/episode began/occurred suddenly, this morning. Modifying factors: The symptoms are alleviated by nothing, the symptoms are aggravated by smoke. Associated signs and symptoms: The patient has no apparent associated signs or symptoms. Severity of symptoms: At their worst the symptoms were moderate in the emergency department the symptoms have improved. The patient has experienced similar episodes in the past. The patient has not recently seen a physician. 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 - Social history:: Smoking status: Patient/guardian denies using tobacco. - Ebola Screening: : No symptoms or risks identified at this time. ROS: 17:38 Constitutional: Negative for fever, chills, and weight loss, Eyes: Negative for injury, snw pain, redness, and discharge, ENT: Negative for injury, pain, and discharge, Neck: Negative for injury, pain, and swelling, Cardiovascular: Negative for chest pain, palpitations, and edema, Abdomen/GI: Negative for abdominal pain, nausea, vomiting, diarrhea, and constipation, Back: Negative for injury and pain, : Negative for injury, bleeding, discharge, and swelling, MS/Extremity: Negative for injury and deformity, Skin: Negative for injury, rash, and discoloration, Neuro: Negative for headache, weakness, numbness, tingling, and seizure, Psych: Negative for depression, anxiety, suicide ideation, homicidal ideation, and hallucinations. 17:38 Respiratory: Positive for cough, shortness of breath, at rest. Exam: 17:38 Constitutional: This is a well developed, well nourished patient who is awake, alert, snw and in no acute distress. Head/Face: Normocephalic, atraumatic. Eyes: Pupils equal round and reactive to light, extra-ocular motions intact. Lids and lashes normal. Conjunctiva and sclera are non-icteric and not injected. Cornea within normal limits. Periorbital areas with no swelling, redness, or edema. ENT: Nares patent. No nasal discharge, no septal abnormalities noted. Tympanic membranes are normal and external auditory canals are clear. Oropharynx with no redness, swelling, or masses, exudates, or evidence of obstruction, uvula midline. Mucous membranes moist. Neck: Trachea midline, no thyromegaly or masses palpated, and no cervical lymphadenopathy. Supple, full range of motion without nuchal rigidity, or vertebral point tenderness. No Meningismus. Chest/axilla: Normal chest wall appearance and motion. Nontender with no deformity. No lesions are appreciated. Cardiovascular: Regular rate and rhythm with a normal S1 and S2. No gallops, murmurs, or rubs. Normal PMI, no JVD. No pulse deficits. Respiratory: Lungs have equal breath sounds bilaterally, clear to auscultation and percussion. No rales, rhonchi or wheezes noted. No increased work of breathing, no retractions or nasal flaring. Abdomen/GI: Soft, non-tender, with normal bowel sounds. No distension or tympany. No guarding or rebound. No evidence of tenderness throughout. Back: No spinal tenderness. No costovertebral tenderness. Full range of motion. Skin: Warm, dry with normal turgor. Normal color with no rashes, no lesions, and no evidence of cellulitis. MS/ Extremity: Pulses equal, no cyanosis. Neurovascular intact. Full, normal range of motion. Neuro: Awake and alert, GCS 15, oriented to person, place, time, and situation. Cranial nerves II-XII grossly intact. Motor strength 5/5 in all extremities. Sensory grossly intact. Cerebellar exam normal. Normal gait. Psych: Awake, alert, with orientation to person, place and time. Behavior, mood, and affect are within normal limits. Vital Signs: 16:40 BP 114 / 69; Pulse 79; Resp 20 S; Temp 99.0(TE); Pulse Ox 98% on R/A; aa5 MDM: 16:52 Patient medically screened. [facility] 17:42 Data reviewed: vital signs, nurses notes. Data interpreted: Pulse oximetry: on room air snw is 98 %. Interpretation: acceptable. Counseling: I had a detailed discussion with the patient and/or guardian regarding: the historical points, exam findings, and any diagnostic results supporting the discharge/admit diagnosis, the need for outpatient follow up, to return to the emergency department if symptoms worsen or persist or if there are any questions or concerns that arise at home. Special discussion: Based on the history and exam findings, there is no indication for further emergent testing or inpatient evaluation. 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 I discussed with the patient/guardian the need to see the primary care provider for further evaluation of the symptoms. Administered Medications: 17:32 Drug: Albuterol 2.5 mg Route: Inhalation; mg2 Disposition: 09/24 07:25 Co-signature as Attending Physician, Ray Marquez MD I agree with the assessment and [facility] plan of care. Disposition: 09/23/19 17:40 Discharged to Home. Impression: Bronchitis, not specified as acute or chronic. - Condition is Stable. - Discharge Instructions: Acute Bronchitis, Adult, How to Use an Inhaler, Cool Mist Vaporizer, Cough, Adult. - Prescriptions for Albuterol Sulfate 90 mcg/actuation Inhalation - inhale 1-2 puff by INHALATION route every 4-6 hours; 2 Inhaler. - Work release form, Medication Reconciliation Form, Thank You Letter, Antibiotic Education, Prescription Opioid Use form. - Follow up: Private Physician; When: 48 Hours; Reason: Recheck today's complaints, Continuance of care, Re-evaluation by your physician. Follow up: Emergency Department; When: As needed; Reason: Worsening of condition. Signatures: Ray Marquez MD MD cha Therrien, Shelly, COMMERCIAL CONSTRUCTION SUPERINTENDENT-C COMMERCIAL CONSTRUCTION SUPERINTENDENT-Csnw Sailaja Baltazar, RN RN aa5 Shawn Hamilton RN RN mg2 Corrections: (The following items were deleted from the chart) 09/23 18:00 17:40 09/23/2019 17:40 Discharged to Home. Impression: Bronchitis, not specified as mg2 acute or chronic. Condition is Stable. Forms are Medication Reconciliation Form, Thank You Letter, Antibiotic Education, Prescription Opioid Use. Follow up: Private Physician; When: 48 Hours; Reason: Recheck today's complaints, Continuance of care, Re-evaluation by your physician. Follow up: Emergency Department; When: As needed; Reason: Worsening of condition. snw
--- NOTE | 2019-09-23 17:41 | ER ---
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 pt also states "my throat feels scratchy, like it's dry and uncomfortable". 16:38 Transition of care: patient was not received from another setting of care. Onset of aa5 symptoms was August 2019. Risk Assessment: Do you want to hurt yourself or someone else? Patient reports no desire to harm self or others. Initial Sepsis Screen: Does the patient meet any 2 criteria? No. Patient's initial sepsis screen is negative. Does the patient have a suspected source of infection? No. Patient's initial sepsis screen is negative. Care prior to arrival: None. 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 - Social history:: Smoking status: Patient/guardian denies using tobacco. - Ebola Screening: : No symptoms or risks identified at this time. Screenin:58 Abuse screen: Denies threats or abuse. Denies injuries from another. Nutritional mg2 screening: No deficits noted. Tuberculosis screening: No symptoms or risk factors identified. Fall Risk None identified. Assessment: 17:57 General: Appears in no apparent distress. comfortable, Behavior is calm, cooperative. mg2 Pain: Denies pain. Neuro: Level of Consciousness is awake, alert, obeys commands, Oriented to person, place, time, situation. Cardiovascular: Capillary refill < 3 seconds. Respiratory: Reports shortness of breath at rest cough that is non-productive, Breath sounds are clear bilaterally. in mediastinum, right upper lobe and left upper lobe. GI: No signs and/or symptoms were reported involving the gastrointestinal system. : No signs and/or symptoms were reported regarding the genitourinary system. EENT: No signs and/or symptoms were reported regarding the EENT system. Derm: Skin is intact, is healthy with good turgor, Skin is pink, warm \\T\\ dry. normal. Musculoskeletal: Circulation, motion, and sensation intact. Capillary refill < 3 seconds. Vital Signs: 16:40 BP 114 / 69; Pulse 79; Resp 20 S; Temp 99.0(TE); Pulse Ox 98% on R/A; aa5 ED Course: 16:26 Patient arrived in ED. mr 16:37 [facility] snw 16:37 Ray Marquez MD is Attending Physician. snw 16:46 Arm band placed on Patient placed in an exam room, on a stretcher. aa5 16:49 Triage completed. aa5 16:58 Shawn Hamilton, RN is Primary Nurse. mg2 17:58 No provider procedures requiring assistance completed. Patient did not have IV access mg2 during this emergency room visit. 17:59 Patient has correct armband on for positive identification. mg2 Administered Medications: 17:32 Drug: Albuterol 2.5 mg Route: Inhalation; mg2 Outcome: 17:40 Discharge ordered by . snw 17:59 Discharged to home ambulatory. mg2 17:59 Condition: stable 17:59 Discharge instructions given to patient, Instructed on discharge instructions, follow up and referral plans. medication usage, Demonstrated understanding of instructions, follow-up care, medications, Prescriptions given X 1. 18:00 Patient left the ED. mg2 Signatures: Camelia Angelo FNP-C FNP-Nitesh Renee LayneSailaja, RN RN aa5 Shawn Hamilton, JOSE LUIS RN mg2
[2019-09-23 18:05] VITALS: BP 114/69; TEMP 99; O2SAT 98
== END 2019-09-23 18:00 | disposition home or self-care (01) ==
LOC: ER 16:22
DX: J40 Bronchitis, not specified as acute or chronic (principal); Z88.0 Allergy status to penicillin
CPT/HCPCS: 99284

== ENCOUNTER 2019-11-23 11:54 | Emergency (ER) | payer MEDICAID ==
--- NOTE | 2019-11-23 13:59 | EDPHYS ---
Physician Documentation [facility] Name: Najma Wood Age: 39 yrs Sex: Female : 1980 Arrival Date: 11/23/2019 Time: 11:56 Bed 23 Private MD: ED Physician Ray Marquez HPI: 11/23 13:55 This 39 yrs old Female presents to ER via Ambulatory with complaints of [facility] Asthma Exacerbation. 13:55 The patient presents to the emergency department with wheezing, Current therapy: [facility] albuterol inhaler. Onset: The symptoms/episode began/occurred 3 day(s) ago. 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 - Social history:: Smoking status: Patient/guardian denies using tobacco. - Ebola Screening: : Patient negative for fever greater than or equal to 101.5 degrees Fahrenheit, and additional compatible Ebola Virus Disease symptoms Patient denies exposure to infectious person Patient denies travel to an Ebola-affected area in the 21 days before illness onset No symptoms or risks identified at this time. - Family history:: not pertinent. ROS: 13:55 Constitutional: Negative for fever, chills, and weight loss, Eyes: Negative for injury, yanet pain, redness, and discharge, ENT: Negative for injury, pain, and discharge, Neck: Negative for injury, pain, and swelling, Cardiovascular: Negative for chest pain, palpitations, and edema, Abdomen/GI: Negative for abdominal pain, nausea, vomiting, diarrhea, and constipation, Back: Negative for injury and pain, : Negative for injury, bleeding, discharge, and swelling, MS/Extremity: Negative for injury and deformity, Skin: Negative for injury, rash, and discoloration, Neuro: Negative for headache, weakness, numbness, tingling, and seizure, Psych: Negative for depression, anxiety, suicide ideation, homicidal ideation, and hallucinations, Allergy/Immunology: Negative for hives, rash, and allergies, Endocrine: Negative for neck swelling, polydipsia, polyuria, polyphagia, and marked weight changes, Hematologic/Lymphatic: Negative for swollen nodes, abnormal bleeding, and unusual bruising. 13:55 Respiratory: Positive for cough, shortness of breath, at rest. Exam: 13:55 Constitutional: This is a well developed, well nourished patient who is awake, alert, yanet and in no acute distress. Head/Face: Normocephalic, atraumatic. Eyes: Pupils equal round and reactive to light, extra-ocular motions intact. Lids and lashes normal. Conjunctiva and sclera are non-icteric and not injected. Cornea within normal limits. Periorbital areas with no swelling, redness, or edema. ENT: Nares patent. No nasal discharge, no septal abnormalities noted. Tympanic membranes are normal and external auditory canals are clear. Oropharynx with no redness, swelling, or masses, exudates, or evidence of obstruction, uvula midline. Mucous membranes moist. Neck: Trachea midline, no thyromegaly or masses palpated, and no cervical lymphadenopathy. Supple, full range of motion without nuchal rigidity, or vertebral point tenderness. No Meningismus. Chest/axilla: Normal chest wall appearance and motion. Nontender with no deformity. No lesions are appreciated. Cardiovascular: Regular rate and rhythm with a normal S1 and S2. No gallops, murmurs, or rubs. Normal PMI, no JVD. No pulse deficits. Abdomen/GI: Soft, non-tender, with normal bowel sounds. No distension or tympany. No guarding or rebound. No evidence of tenderness throughout. Back: No spinal tenderness. No costovertebral tenderness. Full range of motion. Skin: Warm, dry with normal turgor. Normal color with no rashes, no lesions, and no evidence of cellulitis. MS/ Extremity: Pulses equal, no cyanosis. Neurovascular intact. Full, normal range of motion. Neuro: Awake and alert, GCS 15, oriented to person, place, time, and situation. Cranial nerves II-XII grossly intact. Motor strength 5/5 in all extremities. Sensory grossly intact. Cerebellar exam normal. Normal gait. Psych: Awake, alert, with orientation to person, place and time. Behavior, mood, and affect are within normal limits. 13:55 Respiratory: mild respiratory distress is noted, Respirations: normal, Breath sounds: decreased breath sounds, that are mild. Vital Signs: 12:04 BP 111 / 71; Pulse 80; Resp 20; Temp 98.2; Pulse Ox 94% on R/A; Weight 49.9 kg (R); sg Height 4 ft. 9 in. (144.78 cm); Pain 0/10; 14:41 BP 110 / 70; Pulse 89; Resp 18; Temp 98; Pulse Ox 95% on R/A; mg2 12:04 Body Mass Index 23.80 (49.90 kg, 144.78 cm) sg MDM: 12:50 Patient medically screened. [facility] 13:57 Data reviewed: vital signs, nurses notes. yanet Administered Medications: 14:11 Drug: Xopenex 2.5 mg Route: Inhalation; mg2 14:42 Follow up: Response: No adverse reaction; Marked relief of symptoms mg2 14:11 Drug: AtroVENT Aerosol 0.5 mg Route: Inhalation; mg2 14:42 Follow up: Response: No adverse reaction; Marked relief of symptoms mg2 Disposition: 11/23/19 13:58 Discharged to Home. Impression: Asthma. - Condition is Stable. - Discharge Instructions: Asthma, Adult, Asthma, Adult, [id number]. - Prescriptions for Albuterol Sulfate 90 mcg/actuation - inhale 1-2 puff by INHALATION route every 4-6 hours; 1 Inhaler. - Medication Reconciliation Form, Thank You Letter, Antibiotic Education, Prescription Opioid Use form. - Follow up: Private Physician; When: 2 - 3 days; Reason: Recheck today's complaints, Continuance of care, Re-evaluation by your physician. Follow up: Jaylon Virgen MD; When: 2 - 3 days; Reason: Recheck today's complaints, Re-evaluation by your physician. - Problem is new. - Symptoms have improved. Signatures: Dispatcher [employer] EDOH Evaristo Estrada RN RN Ray Rivas MD MD cha Gardose, Michele, RN RN mg2 Corrections: (The following items were deleted from the chart) 13:14 13:09 UA MICROSCOPIC+U.LAB.BRZ ordered. [facility] ED[facility] 13:59 13:58 11/23/2019 13:58 Discharged to Home. Impression: Asthma. Condition is Stable. yanet Forms are Medication Reconciliation Form, Thank You Letter, Antibiotic Education, Prescription Opioid Use. Follow up: Private Physician; When: 2 - 3 days; Reason: Recheck today's complaints, Continuance of care, Re-evaluation by your physician. Problem is new. Symptoms have improved. [facility] 14:43 13:59 11/23/2019 13:58 Discharged to Home. Impression: Asthma. Condition is Stable. mg2 Forms are Medication Reconciliation Form, Thank You Letter, Antibiotic Education, Prescription Opioid Use. Follow up: Private Physician; When: 2 - 3 days; Reason: Recheck today's complaints, Continuance of care, Re-evaluation by your physician. Follow up: Jaylon Virgen; When: 2 - 3 days; Reason: Recheck today's complaints, Re-evaluation by your physician. Problem is new. Symptoms have improved. [facility]
--- NOTE | 2019-11-23 13:59 | ER ---
Nurse's Notes [facility] Name: Najma Wood Age: 39 yrs Sex: Female : 1980 Arrival Date: 11/23/2019 Time: 11:56 Bed 23 Private MD: Diagnosis: Asthma Presentation: 11/23 12:01 Presenting complaint: Patient states: Shortness of breath and cough that started today, sg reports having asthma that is just getting worse, denies N/V/D the language line was used for pt being deaf. Transition of care: patient was not received from another setting of care. Onset of symptoms was November 23, 2019. Risk Assessment: Do you want to hurt yourself or someone else? Patient reports no desire to harm self or others. Initial Sepsis Screen: Does the patient meet any 2 criteria? No. Patient's initial sepsis screen is negative. Does the patient have a suspected source of infection? No. Patient's initial sepsis screen is negative. Care prior to arrival: None. 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 - Social history:: Smoking status: Patient/guardian denies using tobacco. - Ebola Screening: : Patient negative for fever greater than or equal to 101.5 degrees Fahrenheit, and additional compatible Ebola Virus Disease symptoms Patient denies exposure to infectious person Patient denies travel to an Ebola-affected area in the 21 days before illness onset No symptoms or risks identified at this time. - Family history:: not pertinent. Screenin:04 Abuse screen: Denies threats or abuse. Denies injuries from another. Nutritional mg2 screening: No deficits noted. Tuberculosis screening: No symptoms or risk factors identified. Fall Risk None identified. Assessment: 13:28 General: Appears in no apparent distress. comfortable, Behavior is calm, cooperative. mg2 Pain: Denies pain. Neuro: Level of Consciousness is awake, alert, obeys commands, Oriented to person, place, time, situation. Cardiovascular: Capillary refill < 3 seconds Patient's skin is warm and dry. Respiratory: Reports shortness of breath Airway is patent Respiratory effort is even, unlabored, Respiratory pattern is regular, symmetrical. GI: No deficits noted. : No deficits noted. EENT: No deficits noted. Derm: Skin is intact, is healthy with good turgor, Skin is pink, warm \T\ dry. normal. Musculoskeletal: Circulation, motion, and sensation intact. Capillary refill < 3 seconds. 13:29 Respiratory: Breath sounds are clear bilaterally. in right upper lobe, left upper lobe, mg2 right middle lobe, left lower lobe, left posterior upper lobe, right posterior upper lobe, left posterior lower lobe and right posterior middle lobe. 14:41 Reassessment: Patient appears in no apparent distress at this time. Patient states mg2 feeling better. Vital Signs: 12:04 BP 111 / 71; Pulse 80; Resp 20; Temp 98.2; Pulse Ox 94% on R/A; Weight 49.9 kg (R); sg Height 4 ft. 9 in. (144.78 cm); Pain 0/10; 14:41 BP 110 / 70; Pulse 89; Resp 18; Temp 98; Pulse Ox 95% on R/A; mg2 12:04 Body Mass Index 23.80 (49.90 kg, 144.78 cm) sg ED Course: 11:56 Patient arrived in ED. mr 11:59 Arm band placed on. sg 12:02 Triage completed. 12:45 Ray Marquez MD is Attending Physician. [facility] 13:03 Shawn Hamilton, JOSE LUIS is Primary Nurse. mg2 13:29 No provider procedures requiring assistance completed. Inserted Patient did not have IV mg2 access during this emergency room visit. 13:58 Jaylon Virgen MD is Referral Physician. yanet 14:42 Patient has correct armband on for positive identification. mg2 Administered Medications: 14:11 Drug: Xopenex 2.5 mg Route: Inhalation; mg2 14:42 Follow up: Response: No adverse reaction; Marked relief of symptoms mg2 14:11 Drug: AtroVENT Aerosol 0.5 mg Route: Inhalation; mg2 14:42 Follow up: Response: No adverse reaction; Marked relief of symptoms mg2 Outcome: 13:58 Discharge ordered by . yanet 14:42 Discharged to home ambulatory. mg2 14:42 Condition: stable 14:42 Discharge instructions given to patient, Instructed on discharge instructions, follow up and referral plans. medication usage, Demonstrated understanding of instructions, follow-up care, medications, Prescriptions given X 1. 14:43 Patient left the ED. mg2 Signatures: Evaristo Estrada RN RN sg Ray Marquez MD MD cha Rivera Renee mr Shawn Hamilton RN RN mg2 Corrections: (The following items were deleted from the chart) 12:11 12:01 Presenting complaint: Patient states: Shortness of breath and cough that started sg today, reports having asthma that is just getting worse, denies N/V/D sg
[2019-11-23] MEDS ORDERED: LEVALBUTEROL 1.25 MG/3 ML NEB ONE (14:08)
[2019-11-23] MEDS ORDERED: IPRATROPIUM BROM 0.5MG/2.5ML ONE (14:08)
[2019-11-23 15:01] VITALS: BP 110/70; TEMP 98; O2SAT 95
== END 2019-11-23 14:43 | disposition home or self-care (01) ==
LOC: ER 11:54
DX: J45.909 Unspecified asthma, uncomplicated (principal); Z88.0 Allergy status to penicillin; Z88.8 Allergy status to other drugs, medicaments and biological substances
CPT/HCPCS: 99284

== ENCOUNTER 2020-01-02 19:07 | Emergency (ER) | payer MEDICAID ==
[2020-01-02] MEDS ORDERED: ALBUTEROL 2.5 MG/3 ML NEB SOL ONE (19:32)
[2020-01-02] MEDS ORDERED: IPRATROPIUM BROM 0.5MG/2.5ML ONE (19:32)
--- NOTE | 2020-01-02 20:03 | ER ---
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 Transition of care: patient was not received from another setting of care. Onset of symptoms was January 02, 2020. Risk Assessment: Do you want to hurt yourself or someone else? Patient reports no desire to harm self or others. Initial Sepsis Screen: Does the patient meet any 2 criteria? No. Patient's initial sepsis screen is negative. Does the patient have a suspected source of infection? No. Patient's initial sepsis screen is negative. Care prior to arrival: None. 19:24 Method Of Arrival: Ambulatory bb 19:24 Acuity: SHILPA 3 bb Triage Assessment: 19:41 Respiratory: Onset: The symptoms/episode began/occurred today at five to six pm today, jv1 the patient has mild shortness of breath. Respiratory: Reports shortness of breath since five to six pm today. 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 - Coronavirus screen:: The patient has NOT traveled to [place], [place], or [place] in the past 14 days. Proceed with normal triage process as indicated. - Social history:: Smoking status: unknown. - Ebola Screening: : No symptoms or risks identified at this time. Screenin:35 Abuse screen: Denies threats or abuse. Nutritional screening: No deficits noted. jv1 Tuberculosis screening: Never had TB. Fall Risk None identified. No fall in past 12 months (0 pts). Assessment: 19:36 General: Appears in no apparent distress. uncomfortable, well groomed, Behavior is jv1 calm, cooperative, appropriate for age. Pain: Denies pain. Neuro: Level of Consciousness is awake, alert, obeys commands, Oriented to person, place, time, situation. Cardiovascular: Reports chest tightness due to her difficulty breathing Heart tones S1 S2 Capillary refill < 3 seconds Patient's skin is warm and dry. Rhythm is regular. Respiratory: Reports shortness of breath since 5 to 6 pm today. Airway is patent Respiratory effort is even, labored, Respiratory pattern is regular, tachypnea Breath sounds with wheezes bilaterally. GI: Abdomen is round non-distended, Bowel sounds present X 4 quads. Abd is soft and non tender X 4 quads. : No signs and/or symptoms were reported regarding the genitourinary system. EENT: Reports that she is deaf. Derm: Skin is intact, is healthy with good turgor, Skin is pink, warm \T\ dry. Musculoskeletal: Circulation, motion, and sensation intact. Capillary refill < 3 seconds. 19:36 Reassessment: provider said to hold the labs. jv1 19:57 Reassessment: Patient and/or family updated on plan of care and expected duration. Pain jv1 level reassessed. Patient is alert, oriented x 3, equal unlabored respirations, skin warm/dry/pink. Patient states feeling better. Patient states symptoms have improved. 20:00 Respiratory: Reports feeling better, no shortness of breath Airway is patent jv1 Respiratory effort is even, unlabored, Respiratory pattern is regular, symmetrical, Breath sounds are clear bilaterally. 20:19 Reassessment: Patient and/or family updated on plan of care and expected duration. Pain jv1 level reassessed. Patient is alert, oriented x 3, equal unlabored respirations, skin warm/dry/pink. Patient states feeling better. Patient states symptoms have improved. Vital Signs: 19:24 BP 108 / 87; Pulse 93; Resp 22; Temp 98.5; Pulse Ox 98% on R/A; Weight 49.9 kg (R); bb Pain 0/10; 19:58 BP 118 / 80; Pulse 90; Resp 20; Temp 98; Pulse Ox 99% ; Pain 0/10; jv1 20:21 BP 120 / 80; Pulse 89; Resp 18; Temp 98.2; Pulse Ox 99% ; Pain 0/10; jv1 ED Course: 19:10 Patient arrived in ED. jg7 19:16 Rodger Kim MD is Attending Physician. tw4 19:22 Patient has correct armband on for positive identification. Placed in gown. Bed in low jp3 position. Call light in reach. Side rails up X 1. Side rails up X2. Warm blanket given. Verbal reassurance given. Pulse ox on. NIBP on. 19:23 Patient maintains SpO2 saturation greater than 95% on room air. jp3 19:24 Arm band placed on Patient placed in an exam room, on a stretcher, on pulse oximetry. bb 19:25 Triage completed. bb 19:52 XRAY CXR (1 view) In Process Unspecified. EDMS 20:20 No provider procedures requiring assistance completed. jv1 20:22 Patient did not have IV access during this emergency room visit. jv1 Administered Medications: 19:34 Drug: DuoNeb (3:1) (2.5 mg - 0.5 mg) 3 ml Route: Nebulizer; jv1 20:00 Follow up: Response: No adverse reaction; Marked relief of symptoms; Wheezing diminishedjv1 Outcome: 20:03 Discharge ordered by . tw4 20:21 Discharged to home ambulatory. jv1 20:21 Condition: improved 20:21 Discharge instructions given to patient, Instructed on discharge instructions, follow up and referral plans. medication usage, Demonstrated understanding of instructions, follow-up care, medications, Prescriptions given X 1. 20:22 Patient left the ED. jv1 Signatures: Dispatcher [employer] EDMS Kia Perry RN RN bb Wadley, Terrence, MD MD tw4 Pablito Rodney 3 Roslyn Sorensen RN RN jv1 Lisa Fulton jg7 Corrections: (The following items were deleted from the chart) 19:29 19:24 BP 108 / 87; Pulse 93bpm; Resp 22bpm; Pulse Ox 98% RA; Temp 98.5F; Pain 0/10; jv1 bb
--- NOTE | 2020-01-02 20:04 | EDPHYS ---
Physician Documentation [facility] Name: Najma Wood Age: 39 yrs Sex: Female : 1980 Arrival Date: 01/02/2020 Time: 19:10 Bed 27 Private MD: ED Physician Rodger Kim HPI: 01/03 06:30 This 39 yrs old Female presents to ER via Ambulatory with complaints of tw4 Breathing Difficulty. 06:30 The patient has shortness of breath at rest. Onset: The symptoms/episode began/occurred tw4 3 day(s) ago. Duration: The symptoms are continuous. Duration: The symptoms are continuous, and are steadily getting worse. The patient's shortness of breath has no apparent modifying factors. Associated signs and symptoms: Pertinent positives: non-productive cough. Severity of symptoms: At their worst the symptoms were moderate in the emergency department the symptoms are unchanged. The patient has not experienced similar symptoms in the past. 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 - Coronavirus screen:: The patient has NOT traveled to [place], [place], or [place] in the past 14 days. Proceed with normal triage process as indicated. - Social history:: Smoking status: unknown. - Ebola Screening: : No symptoms or risks identified at this time. ROS: 01/03 06:30 Constitutional: Negative for fever, chills, and weight loss, Eyes: Negative for injury, tw4 pain, redness, and discharge, Cardiovascular: Negative for chest pain, palpitations, and edema, Abdomen/GI: Negative for abdominal pain, nausea, vomiting, diarrhea, and constipation, Back: Negative for injury and pain, MS/Extremity: Negative for injury and deformity, Skin: Negative for injury, rash, and discoloration, Neuro: Negative for headache, weakness, numbness, tingling, and seizure. Respiratory: Positive for cough, shortness of breath, at rest. Exam: 06:30 Constitutional: This is a well developed, well nourished patient who is awake, alert, tw4 and in no acute distress. Head/Face: Normocephalic, atraumatic. Neck: Trachea midline, no thyromegaly or masses palpated, and no cervical lymphadenopathy. Supple, full range of motion without nuchal rigidity, or vertebral point tenderness. No Meningismus. Cardiovascular: Regular rate and rhythm with a normal S1 and S2. No gallops, murmurs, or rubs. Normal PMI, no JVD. No pulse deficits. 06:30 Abdomen/GI: Soft, non-tender, with normal bowel sounds. No distension or tympany. No guarding or rebound. No evidence of tenderness throughout. Back: No spinal tenderness. No costovertebral tenderness. Full range of motion. MS/ Extremity: Pulses equal, no cyanosis. Neurovascular intact. Full, normal range of motion. Neuro: Awake and alert, GCS 15, oriented to person, place, time, and situation. Cranial nerves II-XII grossly intact. Motor strength 5/5 in all extremities. Sensory grossly intact. Cerebellar exam normal. Normal gait. 06:30 Respiratory: the patient does not display signs of respiratory distress, Respirations: normal, Breath sounds: wheezing: that is mild. Vital Signs: 01/02 19:24 BP 108 / 87; Pulse 93; Resp 22; Temp 98.5; Pulse Ox 98% on R/A; Weight 49.9 kg (R); bb Pain 0/10; 19:58 BP 118 / 80; Pulse 90; Resp 20; Temp 98; Pulse Ox 99% ; Pain 0/10; jv1 20:21 BP 120 / 80; Pulse 89; Resp 18; Temp 98.2; Pulse Ox 99% ; Pain 0/10; jv1 MDM: 19:24 Patient medically screened. tw4 01/03 06:30 Antibiotic administration: Not indicated. Data reviewed: vital signs, nurses notes. tw4 Counseling: I had a detailed discussion with the patient and/or guardian regarding: the historical points, exam findings, and any diagnostic results supporting the discharge/admit diagnosis. Medication response: albuterol nebulizer treatment(s) markedly relieved the patient's wheezing. Response to treatment: the patient's symptoms have resolved after treatment, and as a result, I will discharge patient. Special discussion: I discussed with the patient/guardian in detail that at this point there is no indication for admission to the hospital. It is understood, however, that if the symptoms persist or worsen the patient needs to return immediately for re-evaluation. 01/02 19:17 Order name: XRAY CXR (1 view) tw4 01/02 19:17 Order name: Cardiac monitoring; Complete Time: 19:32 tw4 01/02 19:17 Order name: O2 Per Protocol; Complete Time: 19:32 tw4 01/02 19:17 Order name: O2 Sat Monitoring; Complete Time: 19:32 tw4 Administered Medications: 01/02 19:34 Drug: DuoNeb (3:1) (2.5 mg - 0.5 mg) 3 ml Route: Nebulizer; jv1 20:00 Follow up: Response: No adverse reaction; Marked relief of symptoms; Wheezing diminishedjv1 Disposition: 01/02/20 20:03 Discharged to Home. Impression: Acute bronchospasm. - Condition is Stable. - Discharge Instructions: Bronchospasm, Adult, How to Use an Inhaler, Asthma, Adult, [id number]. - Prescriptions for Albuterol Sulfate 90 mcg/actuation - inhale 1-2 puff by INHALATION route every 4-6 hours; 1 Inhaler. - Medication Reconciliation Form, Thank You Letter, Antibiotic Education, Prescription Opioid Use form. - Follow up: Private Physician; When: Upon discharge from the Emergency Department; Reason: Recheck today's complaints, Continuance of care, Re-evaluation by your physician. - Problem is new. - Symptoms have improved. Signatures: Dispatcher [employer] EDCO Kia Perry RN RN Rodger Sosa MD MD tw4 Roslyn Sorensen RN RN jv1 Corrections: (The following items were deleted from the chart) 20:03 20:03 01/02/2020 20:03 Discharged to Home. Impression: Acute bronchospasm. Condition is tw4 Stable. Forms are Medication Reconciliation Form, Thank You Letter, Antibiotic Education, Prescription Opioid Use. tw4 20:22 20:03 01/02/2020 20:03 Discharged to Home. Impression: Acute bronchospasm. Condition is jv1 Stable. Forms are Medication Reconciliation Form, Thank You Letter, Antibiotic Education, Prescription Opioid Use. Follow up: Private Physician; When: Upon discharge from the Emergency Department; Reason: Recheck today's complaints, Continuance of care, Re-evaluation by your physician. Problem is new. Symptoms have improved. tw4
--- NOTE | 2020-01-02 20:14 | RAD REPORT ---
EXAM DESCRIPTION: Marsha Single View01/02/2020 7:51 pm CLINICAL HISTORY: Chest pain COMPARISON: 2019 FINDINGS: Lungs are hyperaerated. The lungs appear clear of acute infiltrate. The heart is normal size IMPRESSION: Hyperaerated lungs consistent with reactive airway disease
[2020-01-02 20:43] VITALS: O2SAT 99
[2020-01-02 20:44] VITALS: BP 120/80; TEMP 98.2
== END 2020-01-02 20:22 | disposition home or self-care (01) ==
LOC: ER 19:07
DX: J98.01 Acute bronchospasm (principal); Z88.0 Allergy status to penicillin; Z88.8 Allergy status to other drugs, medicaments and biological substances
CPT/HCPCS: 71045; 94640; 99284

== ENCOUNTER 2022-07-28 09:36 | Emergency (ER) | payer OTHER ==
--- NOTE | 2022-07-28 11:04 | RAD REPORT ---
EXAM DESCRIPTION: RAD - Shoulder Left 2 View - 07/28/2022 10:52 am CLINICAL HISTORY: PAIN COMPARISON: No comparisons FINDINGS/IMPRESSION: No acute fracture. No malalignment. No significant focal degenerative changes.
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
[2022-07-28 11:57] VITALS: BP 117/88; TEMP 98.1; O2SAT 100
[2022-07-28] MEDS ORDERED: HYDROCODONE/APAP 7.5/325 MG TAB ONE (11:59)
== END 2022-07-28 11:53 | disposition home or self-care (01) ==
LOC: ER 09:36
DX: S46.812A Strain of other muscles, fascia and tendons at shoulder and upper arm level, left arm, initial encounter (principal); Z88.0 Allergy status to penicillin; Z88.8 Allergy status to other drugs, medicaments and biological substances
CPT/HCPCS: 99283

== ENCOUNTER 2024-05-31 13:45 | Emergency (ER) | payer OTHER ==
--- NOTE | 2024-05-31 14:08 | EDPHYS ---
Physician Documentation [facility] Name: Najma Wood Age: 43 yrs Sex: Female : 1980 Arrival Date: 05/31/2024 Time: 13:45 Bed IW1 Private MD: ED Physician Warren Escamilla HPI: 05/31 16:36 This 43 yrs old Female presents to ER via Wheelchair with complaints of Wound Infection kb - TOE. 16:36 Pt is a 43 year old female who presents for redness, swelling and drainage to left kb great toe that started 4 days ago. Denies fever. . Historical: - Allergies: 14:04 PENICILLINS; ph 14:04 Prednisone; ph - PMHx: 14:04 Asthma; Deaf; ph - Immunization history:: Adult Immunizations unknown. - Infectious Disease History:: Denies. - Social history:: Smoking status: unknown. ROS: 16:32 Constitutional: As per HPI kb Exam: 16:32 Constitutional: This is a well developed, well nourished patient who is awake, alert, kb and in no acute distress. Head/Face: Normocephalic, atraumatic. ENT: Moist Mucous membranes Cardiovascular: Regular rate Respiratory: Respirations even and unlabored. No increased work of breathing. Talking in full sentences Skin: Warm, dry with normal turgor. Normal color. Neuro: Awake and alert, GCS 15, oriented to person, place, time, and situation. Moves all extremities. Normal gait. 16:32 Musculoskeletal/extremity: Extremities: grossly normal except: noted in the left first toe: pain, swelling, tenderness, ROM: intact in all extremities, Circulation is intact in all extremities. Sensation intact. Vital Signs: 14:05 BP 141 / 88; Pulse 91; Resp 18; Temp 98.7; Pulse Ox 99% on R/A; ph MDM: 13:58 Patient medically screened. kb 16:35 Differential diagnosis: cellulitis, paronychia, ingrown nail. Data reviewed: vital kb signs, nurses notes. Counseling: I had a detailed discussion with the patient and/or guardian regarding the historical points, exam findings, and any diagnostic results supporting the discharge/admit diagnosis, the need for outpatient follow up, a family practitioner, to return to the emergency department if symptoms worsen or persist or if there are any questions or concerns that arise at home. Administered Medications: 14:21 Drug: Trimethoprim-Sulfamethoxazole PO (160 mg-800 mg (DS) 1 tablet PO once Route: PO; ph 14:30 Follow up: Response: No adverse reaction ph 14:21 Drug: Ibuprofen PO 600 mg PO once Route: PO; ph 14:30 Follow up: Response: No adverse reaction; Medication administered at discharge. ph Disposition Summary: 05/31/24 14:08 Discharge Ordered Notes: Location: Home Condition: Stable kb Diagnosis - Local infection of the skin and subcutaneous tissue, unspecified - left great toe kb paronychia Followup: kb - With: Emergency Department - When: As needed - Reason: Worsening of condition Followup: kb - With: Private Physician - When: 2 - 3 days - Reason: Recheck today's complaints, Continuance of care, Re-evaluation by your physician Discharge Instructions: - Discharge Summary Sheet kb - Paronychia, [id number] kb Forms: - Medication Reconciliation Form kb - Antibiotic Education kb - Prescription Opioid Use kb - Patient Portal Instructions kb - Leadership Thank You Letter kb Prescriptions: - Bactrim DS 800-160 mg Oral Tablet - take 1 tablet ORAL route every 12 hours for 10 days; 20 tablet; Refills: 0, kb Product Selection Permitted Signatures: Megan Powers, ANA MARAVILLA-Yenni Mena, RN RN
--- NOTE | 2024-05-31 14:08 | ER ---
Nurse's Notes [facility] Name: Najma Wood Age: 43 yrs Sex: Female : 1980 Arrival Date: 05/31/2024 Time: 13:45 Bed IW1 Private MD: Diagnosis: Local infection of the skin and subcutaneous tissue, unspecified-left great toe paronychia Presentation: 05/31 14:05 Chief complaint: Patient states: Infection to L great toe, was getting better but the ph last few days it has gotten more swollen, red and painful. Coronavirus screen: Vaccine status: Patient reports being unvaccinated. Ebola Screen: No symptoms or risks identified at this time. Initial Sepsis Screen: Does the patient meet any 2 criteria? No. Patient's initial sepsis screen is negative. Does the patient have a suspected source of infection? No. Patient's initial sepsis screen is negative. Risk Assessment: Do you want to hurt yourself or someone else? Patient reports no desire to harm self or others. Onset of symptoms was May 31, 2024. 14:05 Method Of Arrival: Wheelchair ph 14:05 Acuity: SHILPA 4 ph Triage Assessment: 14:05 General: Appears in no apparent distress. Behavior is calm, cooperative. Pain: ph Complains of pain in Left first toenail. Neuro: Level of Consciousness is awake, alert, obeys commands, Oriented to person, place, time, situation. Musculoskeletal: Swelling present in left first toe and Left first toenail. Historical: - Allergies: 14:04 PENICILLINS; ph 14:04 Prednisone; ph - PMHx: 14:04 Asthma; Deaf; ph - Immunization history:: Adult Immunizations unknown. - Infectious Disease History:: Denies. - Social history:: Smoking status: unknown. Screenin:15 [facility] ED Fall Risk Assessment (Adult) History of falling in the last 3 months, ph including since admission No falls in past 3 months (0 pts) Confusion or Disorientation No (0 pts) Intoxicated or Sedated No (0 pts) Impaired Gait No (0 pts) Mobility Assist Device Used No (0 pt) Altered Elimination No (0 pt) Score/Fall Risk Level 0 - 2 = Low Risk Oriented to surroundings, Maintained a safe environment, Hourly rounding (assess needs \T\ fall precautionary measures) done. Abuse screen: Denies threats or abuse. Denies injuries from another. Nutritional screening: No deficits noted. Tuberculosis screening: No symptoms or risk factors identified. Vital Signs: 14:05 BP 141 / 88; Pulse 91; Resp 18; Temp 98.7; Pulse Ox 99% on R/A; ph ED Course: 13:47 Patient arrived in ED. mg5 13:58 Megan Powers FNP-C is [facility]. kb 13:58 Warren Escamilla MD is Attending Physician. kb 14:06 Triage completed. ph 14:06 Arm band placed on. ph 14:10 Patient has correct armband on for positive identification. ph 14:15 No provider procedures requiring assistance completed. Patient did not have IV access ph during this emergency room visit. 14:24 Yenni Carson, RN is Primary Nurse. ph Administered Medications: 14:21 Drug: Trimethoprim-Sulfamethoxazole PO (160 mg-800 mg (DS) 1 tablet PO once Route: PO; ph 14:30 Follow up: Response: No adverse reaction ph 14:21 Drug: Ibuprofen PO 600 mg PO once Route: PO; ph 14:30 Follow up: Response: No adverse reaction; Medication administered at discharge. ph Medication: 14:15 VIS not applicable for this client. ph Outcome: 14:08 Discharge ordered by . kb 14:24 Patient left the ED. ph 14:24 Discharged to home ambulatory, ph 14:24 Condition: good 14:24 Discharge instructions given to patient, Instructed on discharge instructions, follow up and referral plans. medication usage, Demonstrated understanding of instructions, follow-up care, medications, Prescriptions given X 1, Signatures: Megan Powers FNP-C FNP-Ckb Hall, Patricia, RN RN [facility] mg5
[2024-05-31] MEDS ORDERED: IBUPROFEN 400 MG TAB ONE (14:12)
[2024-05-31] MEDS ORDERED: SMZ./TMP. 800/160 MG TABLET ONE (14:12)
[2024-05-31] MEDS ORDERED: IBUPROFEN 200 MG TAB PO ONE (14:12)
== END 2024-05-31 14:24 | disposition home or self-care (01) ==
LOC: ER 13:45
DX: L03.032 Cellulitis of left toe (principal)
CPT/HCPCS: 99283